=== PATIENT | male | born 1990 | race Caucasian/White ===

== ENCOUNTER 2017-01-18 11:31 | Emergency (ER) | payer OTHER ==
[2017-01-18 11:55] VITALS: BP 158/89; PULSE 72; RESP 16; TEMP 96.8
--- NOTE | 2017-01-18 12:23 | ED ---
ENT HPI - General Chief complaint: Dental/Oral Stated complaint: Oral Pain Time Seen by Provider: 01/18/17 12:03 Source: patient, RN notes reviewed Mode of arrival: ambulatory Limitations: no limitations - History of Present Illness Initial comments: 26-year-old male present emergency department with chief complaint of dental pain. He said that the last 2 weeks. Patient states that he believes his wisdom tooth cracked out. Patient states it's in his right lower region. He states he pain is getting worse. Patient denies fever, chills. He does admit to some intermittent headaches. Denies any sore throat or difficulty swallow. - Related Data Previous Rx's Medication Instructions Recorded Acetaminophen-Codeine 300-30mg 1 tab PO Q4H PRN #20 tablet 01/18/17 [Tylenol #3] Penicillin V Potassium [Pen Vee K] 500 mg PO QID #40 tab 01/18/17 Allergies Allergy/AdvReac Type Severity Reaction Status Date / Time No Known Allergies Allergy Verified 01/18/17 12:00 Review of Systems ROS Statement: Those systems with pertinent positive or pertinent negative responses have been documented in the HPI. ROS Other: All systems not noted in ROS Statement are negative. Past Medical History Past Medical History: No Reported History History of Any Multi-Drug Resistant Organisms: None Reported Past Surgical History: Orthopedic Surgery Additional Past Surgical History / Comment(s): knee Past Psychological History: No Psychological Hx Reported Smoking Status: Current every day smoker Past Alcohol Use History: Occasional Past Drug Use History: None Reported General Exam Limitations: no limitations General appearance: alert, in no apparent distress Head exam: Present: atraumatic, normocephalic, normal inspection Eye exam: Present: normal appearance, PERRL, EOMI. Absent: scleral icterus, conjunctival injection, periorbital swelling ENT exam: Present: mucous membranes moist, TM's normal bilaterally, normal external ear exam. Absent: normal exam, normal oropharynx (Dental fracture #32 no abscesses noted) Neck exam: Present: normal inspection, full ROM. Absent: tenderness, meningismus, lymphadenopathy Respiratory exam: Present: normal lung sounds bilaterally. Absent: respiratory distress, wheezes, rales, rhonchi, stridor Cardiovascular Exam: Present: regular rate, normal rhythm, normal heart sounds. Absent: systolic murmur, diastolic murmur, rubs, gallop, clicks Skin exam: Present: warm, dry, intact, normal color. Absent: rash Course Vital Signs 01/18/17 11:52 Temperature 96.8 F L Pulse Rate 72 Respiratory 16 Rate Blood Pressure 158/89 O2 Sat by Pulse 98 Oximetry Medical Decision Making - Medical Decision Making 26-year-old male presented for dental pain. Patient was placed on antibiotics, pain medication at this time. Patient was given dental clinic information follow-up return parameters were discussed. Disposition Clinical Impression: Fracture of tooth, Toothache Disposition: HOME SELF-CARE Condition: Stable Instructions: Toothache (ED) Additional Instructions: Please follow up with the [facility] dental clinic. [facility] [address]. Phone number for new patients or [phone] for existing patients. Please return to the Emergency Department if symptoms worsen or any other concerns. Prescriptions: Acetaminophen-Codeine 300-30mg [Tylenol #3] 1 tab PO Q4H PRN #20 tablet PRN Reason: pain Penicillin V Potassium [Pen Vee K] 500 mg PO QID #40 tab Referrals: None,Stated [Primary Care Provider] - 1-2 days Time of Disposition: 12:23
== END 2017-01-18 12:40 | disposition home or self-care (01) ==
LOC: EC 11:31
DX: S02.5XXA Fracture of tooth (traumatic), initial encounter for closed fracture (principal); F17.200 Nicotine dependence, unspecified, uncomplicated; X58.XXXA Exposure to other specified factors, initial encounter
CPT/HCPCS: 99282

== ENCOUNTER 2018-07-19 17:34 | Emergency (ER) | payer OTHER ==
[2018-07-19 17:44] VITALS: BP 118/75; PULSE 69; RESP 18; TEMP 97.6
[2018-07-19] MEDS ORDERED: BUPIVACAINE (PF) 0.5% 30 ML VIAL SQ STA (17:58)
[2018-07-19] MEDS ORDERED: BUPIVACAINE (PF) 0.75% 10 ML VIAL SQ STA (18:16)
[2018-07-19] MEDS ORDERED: ACET/COD 300 MG/30 MG STARTER PACK 6 TAB BTL PO STA (18:24)
--- NOTE | 2018-07-19 18:28 | ED ---
ENT HPI - General Chief complaint: Dental/Oral Stated complaint: dental pain Time Seen by Provider: 07/19/18 17:55 Source: patient, RN notes reviewed, old records reviewed Mode of arrival: ambulatory - History of Present Illness Initial comments: Patient is a 27-year-old male presenting to the emergency department due to bleeding the left lower dental pain. Patient reports symptoms started personally 2 days ago. He's had a history of a broken tooth. Patient reports that he had an abscess before. Was treated with antibiotics. Has not followed up with a dentist. Patient states that he has no difficulty breathing, denies trismus, or foul taste or odor mouth. He denies any drainage from the gum or tooth at this time.Patient denies any recent fever, chills, shortness of breath , chest pain, back pain, abdominal pain, nausea vomiting, numbness or tingling, dysuria or hematuria, constipation or diarrhea, headaches or visual changes, or any other current symptoms - Related Data Previous Rx's Medication Instructions Recorded Acetaminophen-Codeine 300-30mg 1 tab PO Q4H PRN #20 tablet 01/18/17 [Tylenol #3] Penicillin V Potassium [Pen Vee K] 500 mg PO QID #40 tab 01/18/17 Clindamycin [Cleocin] 450 mg PO TID 7 Days capsule 07/19/18 Ibuprofen [Motrin] 600 mg PO Q6HR PRN #20 tab 07/19/18 L.acidoph,Paracasei, B.lactis 1 each PO DAILY #30 capsule 07/19/18 [Probiotic] Allergies Allergy/AdvReac Type Severity Reaction Status Date / Time No Known Allergies Allergy Verified 07/19/18 17:44 Review of Systems ROS Statement: Those systems with pertinent positive or pertinent negative responses have been documented in the HPI. ROS Other: All systems not noted in ROS Statement are negative. Past Medical History Past Medical History: No Reported History History of Any Multi-Drug Resistant Organisms: None Reported Past Surgical History: Orthopedic Surgery Additional Past Surgical History / Comment(s): knee Past Psychological History: No Psychological Hx Reported Smoking Status: Current every day smoker Past Alcohol Use History: Occasional Past Drug Use History: None Reported General Exam - General Exam Comments Initial Comments: 27-year-old male. Alert and oriented 3. Patient appears in no acute distress. General appearance: alert, in no apparent distress Head exam: Present: atraumatic, normocephalic, normal inspection Eye exam: Present: normal appearance, PERRL, EOMI. Absent: scleral icterus, conjunctival injection, periorbital swelling ENT exam: Present: normal exam, mucous membranes moist (Patient has surrounding erythema over tooth #20 and 19.), other (Patient has poor dentition.) Neck exam: Present: normal inspection. Absent: tenderness, meningismus, lymphadenopathy Respiratory exam: Present: normal lung sounds bilaterally. Absent: respiratory distress, wheezes, rales, rhonchi, stridor Cardiovascular Exam: Present: regular rate, normal rhythm, normal heart sounds. Absent: systolic murmur, diastolic murmur, rubs, gallop, clicks GI/Abdominal exam: Present: soft, normal bowel sounds. Absent: distended, tenderness, guarding, rebound, rigid Neurological exam: Present: alert, oriented X3, CN II-XII intact Psychiatric exam: Present: normal affect, normal mood Skin exam: Present: warm, dry, intact, normal color. Absent: rash Course Vital Signs 07/19/18 17:41 Temperature 97.6 F Pulse Rate 69 Respiratory 18 Rate Blood Pressure 118/75 O2 Sat by Pulse 98 Oximetry Medical Decision Making - Medical Decision Making Patient's 27-year-old male presents today with dental abscess over tooth #19 and 20. There is no drainable abscess noted at this time. He has no trismus. Fevers or chills. This time Patient was started on clindamycin, we'll also write the Patient for probiotic. Given a starter pack for pain medication. Motrin. Discussed following up with dental clinic. All questions answered and return parameters were discussed. Disposition Clinical Impression: Dental abscess Disposition: HOME SELF-CARE Condition: Good Instructions: Dental Abscess (ED), Toothache (ED) Additional Instructions: [facility] [place] [address] [place] [address] [phone] (existing clients only) For new clients: [phone] 1st consult: $50 (includes Xrays) Usually 30% less then private dentist for visits after. [employer] Have to pay $50 for Xrays anmd rest is covered. [phone] Prescriptions: Clindamycin [Cleocin] 450 mg PO TID 7 Days capsule Ibuprofen [Motrin] 600 mg PO Q6HR PRN #20 tab PRN Reason: Pain L.acidoph,Paracasei, B.lactis [Probiotic] 1 each PO DAILY #30 capsule Is patient prescribed a controlled substance at d/c from ED?: No Referrals: None,Stated [Primary Care Provider] - 1-2 days Time of Disposition: 18:24
--- NOTE | 2018-07-20 07:12 | CDI ---
Documentation Clarification OP Dear BARBARA Matos: Please do addendum to ED report for HPI , Physical exam and MDM. Thank you, Jocelyn Trevino Application Packaging Specialist If you have any question, Please contact software quality manager at [phone] [facility]
== END 2018-07-19 18:41 | disposition home or self-care (01) ==
LOC: EC 17:34
DX: K04.7 Periapical abscess without sinus (principal); F17.200 Nicotine dependence, unspecified, uncomplicated; Z53.8 Procedure and treatment not carried out for other reasons
CPT/HCPCS: 99283

== ENCOUNTER 2019-06-29 15:26 | Emergency (ER) | payer OTHER ==
[2019-06-29 15:32] VITALS: RESP 16
[2019-06-29 16:48] LABS: Basophils # (A) 0.1 k/uL (0-0.2); Basophils % (A) 0 %; Eosinophils # (A) 0.1 k/uL (0-0.7); Eosinophils % (A) 1 %; HCT 48.8 % (39.0-53.0); HGB 16.5 gm/dL (13.0-17.5); Lymphocytes # (A) 2.5 k/uL (1.0-4.8); Lymphocytes % (A) 14 %; MCH 29.2 pg (25.0-35.0); MCHC 33.8 g/dL (31.0-37.0); MCV 86.5 fL (80.0-100.0); Monocytes # (A) 0.7 k/uL (0-1.0); Monocytes % (A) 4 %; Neutrophils # (A) 14.2 k/uL (1.3-7.7); Neutrophils % (A) 80 %; Platelet Count 281 k/uL (150-450); RBC 5.65 m/uL (4.30-5.90); RDW 13.2 % (11.5-15.5); WBC 17.7 k/uL (3.8-10.6)
[2019-06-29 17:20] LABS: ALT 46 U/L (21-72); AST 36 U/L (17-59); African American GFR (CKD) >90 (>60 ml/min/1.73 sqM); Albumin 5.2 g/dL (3.5-5.0); Alkaline Phosphatase 41 U/L (38-126); Anion Gap 10 mmol/L; Blood Urea Nitrogen 20 mg/dL (9-20); Calcium 10.4 mg/dL (8.4-10.2); Carbon Dioxide 26 mmol/L (22-30); Chloride 105 mmol/L (98-107); Glucose 115 mg/dL (74-99); Potassium 4.6 mmol/L (3.5-5.1); Sodium 141 mmol/L (137-145); Total Bilirubin 0.4 mg/dL (0.2-1.3); Total Protein 8.8 g/dL (6.3-8.2)
--- NOTE | 2019-06-29 17:29 | XR ---
EXAMINATION: XR chest 2V DATE AND TIME: 06/29/2019 5:03 PM CLINICAL INDICATION: PHH; Cough/pain TECHNIQUE: Departmental protocol COMPARISON: There are no comparison imaging studies. FINDINGS: The lungs are clear. The pleural spaces are negative. The cardiac silhouette is borderline enlarged, which may be projectional. The remainder of the medias tinal silhouette is normal. The lateral view shows manubriosternal junction one shaft-width malalignment, consistent with fractur e, age indeterminate. No acute soft tissue findings. IMPRESSION: 1. No acute pulmonary pleural process. 2. However, one shaft-width manubriosternal displacement noted on the lateral view. 3. Cardiac silhouette appears borderline enlarged on the frontal view.
[2019-06-29] MEDS ORDERED: AMOXIC-POT CLAV 875-125MG 1 EACH TAB PO STA (19:09)
--- NOTE | 2019-06-29 19:13 | ED ---
General Adult HPI - General Chief complaint: Dizziness Stated complaint: near syncope Source: patient, EMS Mode of arrival: EMS Limitations: no limitations - History of Present Illness Initial comments: The patient is a 28-year-old male with no past medical history who presents to the emergency room with reported presyncopal episode. He states that he went with his girlfriend. Doctor's visit. He was waiting in the car and he had the sensation that he is can pass out. States that when he got up to ambulate sensation got worse. He got into the doctor's office and was extremely diaphoretic and pale. The patient was sat down. Did not lose consciousness. He was evaluated by the physician on staff at the doctor's office who recommended to go to the emergency room for evaluation. He was transferred by EMS. States that time he arrived he felt better. He denies any chest pain or shortness breath prior to episode. No history of cardiac disease. Denies family history of sudden cardiac . Denies any headaches or visual changes. No unilateral symptoms. Patient states he's been eating and drinking without difficulty. No report of any changes in his bowel or bladder habits. No recent infections. Does report that he has a painful tooth which has been bothering him for the past month. Hasn't been on any antibiotics. No prescription drug use. Denies use of any illicit drugs. No history of DVT or PE. No lower extremity swelling. No calf pain. Denies ataxia or vertiginous symptoms. There are no alleviating, precipitating or modifying factors - Related Data Home Medications Medication Instructions Recorded Confirmed No Known Home Medications 06/29/19 06/29/19 Previous Rx's Medication Instructions Recorded Amoxicillin/Potassium Clav 1 tab PO BID #14 tab 06/29/19 [Augmentin 875-125 Tablet] Allergies Allergy/AdvReac Type Severity Reaction Status Date / Time No Known Allergies Allergy Verified 06/29/19 16:07 Review of Systems ROS Statement: Those systems with pertinent positive or pertinent negative responses have been documented in the HPI. ROS Other: All systems not noted in ROS Statement are negative. Past Medical History Past Medical History: No Reported History History of Any Multi-Drug Resistant Organisms: None Reported Past Surgical History: Orthopedic Surgery Additional Past Surgical History / Comment(s): knee Past Psychological History: No Psychological Hx Reported Smoking Status: Current every day smoker Past Alcohol Use History: Rare Past Drug Use History: Marijuana General Exam Limitations: no limitations Course Vital Signs 06/29/19 06/29/19 06/29/19 15:27 16:40 19:28 Temperature 98.3 F 98.7 F Pulse Rate 65 56 L Pulse Rate [ 70 Right Sitting Pulse Oximetery ] Pulse Rate [ 71 Right Standing Pulse Oximetery ] Pulse Rate [ 65 Right Supine Pulse Oximetery ] Respiratory 16 16 16 Rate Blood Pressure 131/83 131/83 Blood Pressure 129/79 [Right Arm Sitting] Blood Pressure 128/82 [Right Arm Standing] Blood Pressure 117/67 [Right Arm Supine] O2 Sat by Pulse 98 97 Oximetry EKG Findings - EKG Comments: EKG Findings:: EKG demonstrates normal sinus rhythm with ventricular rate of 63. RI interval 142. QRS 80. QTC of 405. Inverted T-wave in lead 3. No acute ST segment elevations or depressions. No signs of Pvydc-Itjufagtm-Xqohd or Brugada syndrome Medical Decision Making - Medical Decision Making Upon arrival the patient is placed in room 4. A thorough history and physical exam was performed. Peripheral IV was established. The patient was given a liter bolus of normal saline. Laboratory studies were conducted. A 12-lead EKG was performed as well. Her sister demonstrated white blood cell count of 17.7. Orthostatics were performed prior to fluid initiation and were negative. The patient was sent over for a chest x-ray which demonstrated no acute pulmonary process. One shaft width manubriosternal displacements consistent with previous fracture. No trauma today. I discussed these results the patient. I did attempt to identify a different source of infection. The patient denies history of IV drug use. No ear pain or sore throat. Has the only possible source for his infection is is to the did recommend treatment with antibiotics. Patient did agree. He was given a dose of Augmentin in the emergency department. Patient feels asymptomatic at this time. He will be discharged home and needs to follow up with his primary care physician. He needs to have repeat lab kadeem dies done after finishing the antibiotic. He also needs to have Holter monitoring and echo of his heart because of this presyncopal episode. Patient understood this. He has any new or worsening symptoms he should return to the emergency room. The patient was discharged home stable condition - Lab Data Result diagrams: 06/29/19 16:32 06/29/19 16:32 Lab Results 06/29/19 06/29/19 Range/Units 16:32 16:32 WBC 17.7 H (3.8-10.6) k/uL RBC 5.65 (4.30-5.90) m/uL Hgb 16.5 (13.0-17.5) gm/dL Hct 48.8 (39.0-53.0) % MCV 86.5 (80.0-100.0) fL MCH 29.2 (25.0-35.0) pg MCHC 33.8 (31.0-37.0) g/dL RDW 13.2 (11.5-15.5) % Plt Count 281 (150-450) k/uL Neutrophils % 80 % Lymphocytes % 14 % Monocytes % 4 % Eosinophils % 1 % Basophils % 0 % Neutrophils # 14.2 H (1.3-7.7) k/uL Lymphocytes # 2.5 (1.0-4.8) k/uL Monocytes # 0.7 (0-1.0) k/uL Eosinophils # 0.1 (0-0.7) k/uL Basophils # 0.1 (0-0.2) k/uL Sodium 141 (137-145) mmol/L Potassium 4.6 (3.5-5.1) mmol/L Chloride 105 (98-107) mmol/L Carbon Dioxide 26 (22-30) mmol/L Anion Gap 10 mmol/L BUN 20 (9-20) mg/dL Creatinine 0.99 (0.66-1.25) mg/dL Est GFR (CKD-EPI)AfAm >90 (>60 ml/min/1.73 sqM) Est GFR (CKD-EPI)NonAf >90 (>60 ml/min/1.73 sqM) Glucose 115 H (74-99) mg/dL Calcium 10.4 H (8.4-10.2) mg/dL Total Bilirubin 0.4 (0.2-1.3) mg/dL AST 36 (17-59) U/L ALT 46 (21-72) U/L Alkaline Phosphatase 41 (38-126) U/L Total Protein 8.8 H (6.3-8.2) g/dL Albumin 5.2 H (3.5-5.0) g/dL TSH 1.830 (0.465-4.680) mIU/L Disposition Clinical Impression: Pre-syncope, Leukocytosis, Infected dental caries Disposition: HOME SELF-CARE Condition: Stable Instructions (If sedation given, give patient instructions): Near Syncope (ED) Additional Instructions: Please follow up with Dr. Steen next week in office. You need to have repeat CBC drawn to re-evaluated your WBC. See your dentist to have her tooth extracted. Return to the emergency room for any new or worsening symptoms Prescriptions: Amoxicillin/Potassium Clav [Augmentin 875-125 Tablet] 1 tab PO BID #14 tab Is patient prescribed a controlled substance at d/c from ED?: No Referrals: Zheng Steen MD [Primary Care Provider] - 1-2 days Time of Disposition: 19:13
[2019-06-29 19:29] VITALS: BP 131/83; PULSE 56; TEMP 98.7
== END 2019-06-29 19:28 | disposition home or self-care (01) ==
LOC: EC 15:26
DX: D72.829 Elevated white blood cell count, unspecified (principal); K02.9 Dental caries, unspecified; R55 Syncope and collapse; F17.200 Nicotine dependence, unspecified, uncomplicated
CPT/HCPCS: 36415; 71046; 80053; 84443; 85025; 93005; 99285

== ENCOUNTER 2020-11-15 15:05 | Emergency (ER) | payer OTHER ==
[2020-11-15 15:25] VITALS: BP 128/80; PULSE 72; TEMP 98.4
--- NOTE | 2020-11-15 15:27 | ED ---
General Adult HPI - General Source: patient Mode of arrival: ambulatory Limitations: no limitations <Narcisa Zuñiga - Last Filed: 11/15/20 15:27> - General Source: RN notes reviewed <Edwin Velasco - Last Filed: 11/15/20 16:39> - General Chief complaint: Recheck/Abnormal Lab/Rx Stated complaint: covid exposure Time Seen by Provider: 11/15/20 15:27 - History of Present Illness Initial comments: Patient is a 29-year-old male that presents to emergency department complaining of a cough for several days status post exposure to a Covid-positive family member. He notes that he really doesn't have any symptoms she is on comes the emergency room to get tested. Patient denied any chest pain shortness of breath headache nausea vomiting diarrhea constipation fever fatigue chills loss and sense of taste or smell. (Edwin Velasco) - Related Data Home Medications Medication Instructions Recorded Confirmed No Known Home Medications 06/29/19 06/29/19 Previous Rx's Medication Instructions Recorded Amoxicillin/Potassium Clav 1 tab PO BID #14 tab 06/29/19 [Augmentin 875-125 Tablet] Allergies Allergy/AdvReac Type Severity Reaction Status Date / Time No Known Allergies Allergy Verified 11/15/20 15:23 Review of Systems ROS Other: All systems not noted in ROS Statement are negative. <Narcisa Zuñiga P - Last Filed: 11/15/20 15:27> ROS Other: All systems not noted in ROS Statement are negative. <Edwin Velasco - Last Filed: 11/15/20 16:39> ROS Statement: Those systems with pertinent positive or pertinent negative responses have been documented in the HPI. Past Medical History Past Medical History: No Reported History History of Any Multi-Drug Resistant Organisms: None Reported Past Surgical History: Orthopedic Surgery Additional Past Surgical History / Comment(s): knee Past Psychological History: No Psychological Hx Reported Smoking Status: Current every day smoker Past Alcohol Use History: Rare Past Drug Use History: Marijuana <Narcisa Zuñiga P - Last Filed: 11/15/20 15:27> General Exam Limitations: no limitations <Narcisa Zuñiga P - Last Filed: 11/15/20 15:27> General appearance: alert, in no apparent distress, obese Head exam: Present: atraumatic, normocephalic, normal inspection Eye exam: Present: normal appearance, PERRL, EOMI. Absent: scleral icterus, conjunctival injection, periorbital swelling ENT exam: Present: normal exam, mucous membranes moist Neck exam: Present: normal inspection. Absent: tenderness, meningismus, lymphadenopathy Respiratory exam: Present: normal lung sounds bilaterally. Absent: respiratory distress, wheezes, rales, rhonchi, stridor Cardiovascular Exam: Present: regular rate, normal rhythm, normal heart sounds. Absent: systolic murmur, diastolic murmur, rubs, gallop, clicks GI/Abdominal exam: Present: soft, normal bowel sounds. Absent: distended, tenderness, guarding, rebound, rigid Extremities exam: Present: normal inspection, full ROM, normal capillary refill. Absent: tenderness, pedal edema, joint swelling, calf tenderness Neurological exam: Present: alert, oriented X3, CN II-XII intact Psychiatric exam: Present: normal affect, normal mood Skin exam: Present: warm, dry, intact, normal color. Absent: rash <Edwin Velasco - Last Filed: 11/15/20 16:39> Course Vital Signs 11/15/20 11/15/20 15:23 15:33 Temperature 98.4 F Pulse Rate 72 Respiratory 18 16 Rate Blood Pressure 128/80 O2 Sat by Pulse 96 Oximetry Medical Decision Making <Edwin Velasco - Last Filed: 11/15/20 16:39> - Medical Decision Making 29-year-old male with a mild cough for several days status post exposure to Covid-positive family member. Covid test ordered. Vital signs stable. Patient informed that management for either Covid positive or negative is the same due to the similarity of viral upper respiratory tract infections. Case discussed with Dr. Zuñiga, decided patient to discharge home. (Edwin Velasco) Disposition <Narcisa Zuñiga - Last Filed: 11/15/20 15:27> Is patient prescribed a controlled substance at d/c from ED?: No Time of Disposition: 16:39 <Edwin Velasco - Last Filed: 11/15/20 16:39> Clinical Impression: Upper respiratory tract infection Disposition: HOME SELF-CARE Condition: Stable Instructions (If sedation given, give patient instructions): Pharyngitis (ED), Upper Respiratory Infection (ED) Additional Instructions: Please return to the Emergency Department if symptoms worsen or any other concerns. Quarantine for 10-14 days due to being exposed to a Covid-positive family member. Take [id number] anti-inflammatories for fever and general muscle aches and pains. Follow-up with primary care as soon as possible. Increase oral fluid intake. Referrals: Zheng Steen MD [Primary Care Provider] - 1-2 days
[2020-11-15 15:34] VITALS: RESP 16
== END 2020-11-15 16:46 | disposition home or self-care (01) ==
LOC: EC 15:05
DX: J06.9 Acute upper respiratory infection, unspecified (principal); Z20.822 Contact with and (suspected) exposure to COVID-19; F17.200 Nicotine dependence, unspecified, uncomplicated
CPT/HCPCS: 87635

== ENCOUNTER 2021-09-23 17:55 | Inpatient (IN) | payer OTHER ==
[2021-09-23 18:19] LABS: Glucose,Whole Blood 488 mg/dL (75-99)
[2021-09-23] MEDS ORDERED: SODIUM CHLORIDE 0.9% 1,000 ML IV STA ×2 (18:30)
[2021-09-23] MEDS ORDERED: HYDROmorphone 0.5 MG/0.5 ML SYRINGE IVP STA (18:30)
--- NOTE | 2021-09-23 18:33 | ED ---
General Adult HPI - General Chief complaint: Abdominal Pain Stated complaint: Covid exposure, abd pain Time Seen by Provider: 09/23/21 18:22 Source: patient, RN notes reviewed Mode of arrival: ambulatory Limitations: no limitations - History of Present Illness Initial comments: 30-year-old male presents to the emergency room for abdominal pain. Patient has had abdominal pain for 3 days now. Patient states it is across his lower abdomen. Patient reports nausea as well. Patient states his girlfriend just tested positive for COVID-19. Patient also reports his sugar has been running high. He states that he is supposed to take several oral medications for this but hasn't been doing it. He hasn't been checking his blood sugar at home either.Patient has no other complaints at this time including shortness of breath, chest pain, nausea or vomiting, headache, or visual changes. - Related Data Home Medications Medication Instructions Recorded Confirmed No Known Home Medications 06/29/19 09/23/21 Allergies Allergy/AdvReac Type Severity Reaction Status Date / Time No Known Allergies Allergy Verified 09/23/21 19:07 Review of Systems ROS Statement: Those systems with pertinent positive or pertinent negative responses have been documented in the HPI. ROS Other: All systems not noted in ROS Statement are negative. Past Medical History Past Medical History: No Reported History, Diabetes Mellitus History of Any Multi-Drug Resistant Organisms: None Reported Past Surgical History: Orthopedic Surgery Additional Past Surgical History / Comment(s): knee Past Psychological History: No Psychological Hx Reported Smoking Status: Current every day smoker Past Alcohol Use History: Rare Past Drug Use History: Marijuana General Exam Limitations: no limitations General appearance: alert, in no apparent distress Head exam: Present: atraumatic Eye exam: Present: normal appearance, PERRL, EOMI. Absent: scleral icterus, conjunctival injection ENT exam: Present: normal exam, mucous membranes moist Neck exam: Present: normal inspection, full ROM. Absent: tenderness Respiratory exam: Present: normal lung sounds bilaterally. Absent: respiratory distress, wheezes Cardiovascular Exam: Present: regular rate, normal rhythm, normal heart sounds GI/Abdominal exam: Present: soft, normal bowel sounds. Absent: distended, tenderness Neurological exam: Present: alert Course Vital Signs 09/23/21 18:10 Temperature 97.7 F Pulse Rate 114 H Respiratory 20 Rate Blood Pressure 126/75 O2 Sat by Pulse 96 Oximetry Medical Decision Making - Medical Decision Making Vitals are stable. Patient is tachycardic at 114. CBC does show leukocytosis. CMP reveals hyperglycemia and an anion gap of 26. 4+ ketones in the urine, positive acetone. Consistent with DKA. Pseudohyponatremia noted. Patient given 2 L of fluid, started on a insulin drip. Patient is covert positive as well. Patient does qualify for monoclonal antibodies given he is not vaccinated. Patient will be admitted to Dr. steen - Lab Data Result diagrams: 09/23/21 18:47 09/23/21 18:47 Lab Results 09/23/21 09/23/21 09/23/21 Range/Units 18:14 18:18 18:47 WBC 22.9 H (3.8-10.6) k/uL RBC 5.09 (4.30-5.90) m/uL Hgb 15.0 (13.0-17.5) gm/dL Hct 43.2 (39.0-53.0) % MCV 84.9 (80.0-100.0) fL MCH 29.6 (25.0-35.0) pg MCHC 34.8 (31.0-37.0) g/dL RDW 14.1 (11.5-15.5) % Plt Count 242 (150-450) k/uL MPV 9.2 Neutrophils % 82 % Lymphocytes % 12 % Monocytes % 4 % Eosinophils % 0 % Basophils % 0 % Neutrophils # 18.8 H (1.3-7.7) k/uL Lymphocytes # 2.8 (1.0-4.8) k/uL Monocytes # 0.9 (0-1.0) k/uL Eosinophils # 0.1 (0-0.7) k/uL Basophils # 0.1 (0-0.2) k/uL Sodium (137-145) mmol/L Potassium (3.5-5.1) mmol/L Chloride (98-107) mmol/L Carbon Dioxide (22-30) mmol/L Anion Gap mmol/L BUN (9-20) mg/dL Creatinine (0.66-1.25) mg/dL Est GFR (CKD-EPI)AfAm (>60 ml/min/1.73 sqM) Est GFR (CKD-EPI)NonAf (>60 ml/min/1.73 sqM) Glucose (74-99) mg/dL POC Glucose (mg/dL) 488 H (75-99) mg/dL POC Glu Pre K Teacher ID Brett Cohen Plasma Lactic Acid Cisco (0.7-2.0) mmol/L Calcium (8.4-10.2) mg/dL Total Bilirubin (0.2-1.3) mg/dL AST (17-59) U/L ALT (4-49) U/L Alkaline Phosphatase (38-126) U/L Total Protein (6.3-8.2) g/dL Albumin (3.5-5.0) g/dL Amylase (30-110) U/L Lipase (23-300) U/L Urine Color Urine Appearance (Clear) Urine pH (5.0-8.0) Ur Specific [place] (1.001-1.035) Urine Protein (Negative) Urine Glucose (UA) (Negative) Urine Ketones (Negative) Urine Blood (Negative) Urine Nitrite (Negative) Urine Bilirubin (Negative) Urine Urobilinogen (<2.0) mg/dL Ur Leukocyte Esterase (Negative) Urine RBC (0-5) /hpf Urine WBC (0-5) /hpf Urine Mucus (None) /hpf Acetone, Qual (Negative) Coronavirus (PCR) Detected A (Not Detectd) 09/23/21 09/23/21 09/23/21 Range/Units 18:47 18:47 18:47 WBC (3.8-10.6) k/uL RBC (4.30-5.90) m/uL Hgb (13.0-17.5) gm/dL Hct (39.0-53.0) % MCV (80.0-100.0) fL MCH (25.0-35.0) pg MCHC (31.0-37.0) g/dL RDW (11.5-15.5) % Plt Count (150-450) k/uL MPV Neutrophils % % Lymphocytes % % Monocytes % % Eosinophils % % Basophils % % Neutrophils # (1.3-7.7) k/uL Lymphocytes # (1.0-4.8) k/uL Monocytes # (0-1.0) k/uL Eosinophils # (0-0.7) k/uL Basophils # (0-0.2) k/uL Sodium 126 L (137-145) mmol/L Potassium 5.0 (3.5-5.1) mmol/L Chloride 92 L (98-107) mmol/L Carbon Dioxide 8 L* (22-30) mmol/L Anion Gap 26 mmol/L BUN 12 (9-20) mg/dL Creatinine 0.76 (0.66-1.25) mg/dL Est GFR (CKD-EPI)AfAm >90 (>60 ml/min/1.73 sqM) Est GFR (CKD-EPI)NonAf >90 (>60 ml/min/1.73 sqM) Glucose 494 H (74-99) mg/dL POC Glucose (mg/dL) (75-99) mg/dL POC Glu Pre K Teacher ID Plasma Lactic Acid [place] 1.4 (0.7-2.0) mmol/L Calcium 9.3 (8.4-10.2) mg/dL Total Bilirubin 0.9 (0.2-1.3) mg/dL AST 20 (17-59) U/L ALT 36 (4-49) U/L Alkaline Phosphatase 85 (38-126) U/L Total Protein 8.0 (6.3-8.2) g/dL Albumin 4.2 (3.5-5.0) g/dL Amylase 54 (30-110) U/L Lipase 151 (23-300) U/L Urine Color Light Yellow Urine Appearance Clear (Clear) Urine pH 5.5 (5.0-8.0) Ur Specific [place] 1.035 (1.001-1.035) Urine Protein 2+ H (Negative) Urine Glucose (UA) 4+ H (Negative) Urine Ketones 4+ H (Negative) Urine Blood Negative (Negative) Urine Nitrite Negative (Negative) Urine Bilirubin Negative (Negative) Urine Urobilinogen <2.0 (<2.0) mg/dL Ur Leukocyte Esterase Negative (Negative) Urine RBC <1 (0-5) /hpf Urine WBC <1 (0-5) /hpf Urine Mucus Rare H (None) /hpf Acetone, Qual Positive (Negative) Coronavirus (PCR) (Not Detectd) Disposition Clinical Impression: DKA (diabetic ketoacidosis), Abdominal pain, COVID, Leukocytosis Disposition: ADMITTED IP TO THIS HOSP Condition: Serious Is patient prescribed a controlled substance at d/c from ED?: No Referrals: Zheng Steen MD [Primary Care Provider] - 1-2 days Time of Disposition: 20:13
[2021-09-23 19:07] LABS: Basophils # (A) 0.1 k/uL (0-0.2); Basophils % (A) 0 %; Eosinophils # (A) 0.1 k/uL (0-0.7); Eosinophils % (A) 0 %; HCT 43.2 % (39.0-53.0); Lymphocytes # (A) 2.8 k/uL (1.0-4.8); Lymphocytes % (A) 12 %; MCH 29.6 pg (25.0-35.0); MCHC 34.8 g/dL (31.0-37.0); MCV 84.9 fL (80.0-100.0); Mean Platelet Volume 9.2; Monocytes # (A) 0.9 k/uL (0-1.0); Monocytes % (A) 4 %; Neutrophils # (A) 18.8 k/uL (1.3-7.7); Neutrophils % (A) 82 %; Platelet Count 242 k/uL (150-450); RBC 5.09 m/uL (4.30-5.90); RDW 14.1 % (11.5-15.5); WBC 22.9 k/uL (3.8-10.6)
[2021-09-23 19:09] LABS: Appearance,Urine Clear (Clear); Bilirubin,Urine Negative (Negative); Blood,Urine Negative (Negative); Color,Urine Light Yellow; Glucose,Urine (UA) 4+ (Negative); Leukocyte Esterase,Urine Negative (Negative); Mucus,Urine Rare /hpf; Nitrite,Urine Negative (Negative); PH, Urine 5.5 (5.0-8.0); Protein,Urine 2+ (Negative); RBC,Urine <1 /hpf (0-5); Specific Gravity,Urine 1.035 (1.001-1.035); Urobilinogen,Urine <2.0 mg/dL (<2.0); WBC,Urine <1 /hpf (0-5)
[2021-09-23 19:19] LABS: ALT 36 U/L (4-49); AST 20 U/L (17-59); African American GFR (CKD) >90 (>60 ml/min/1.73 sqM); Albumin 4.2 g/dL (3.5-5.0); Alkaline Phosphatase 85 U/L (38-126); Amylase 54 U/L (30-110); Anion Gap 26 mmol/L; Blood Urea Nitrogen 12 mg/dL (9-20); Calcium 9.3 mg/dL (8.4-10.2); Chloride 92 mmol/L (98-107); Glucose 494 mg/dL (74-99); Lipase 151 U/L (23-300); Non-African American GFR(CKD) >90 (>60 ml/min/1.73 sqM); Sodium 126 mmol/L (137-145); Total Bilirubin 0.9 mg/dL (0.2-1.3)
[2021-09-23 19:31] LABS: Ketones,Urine 4+ (Negative)
[2021-09-23 19:37] LABS: Carbon Dioxide 8 mmol/L (22-30)
--- NOTE | 2021-09-23 19:45 | CT ---
EXAMINATION TYPE: CT abdomen pelvis w con DATE OF EXAM: 09/23/2021 COMPARISON: None HISTORY: Abdominal pain CT DLP: 1328.8 mGycm Automated exposure control for dose reduction was used. CONTRAST: Performed with IV Contrast, patient injected with 100 mL of Isovue 300. The lung bases are clear. There is no pleural effusion. Heart size is normal. There is no pericardial effusion. Liver spleen and stomach appear intact. The gallbladder appears intact. The bile ducts are not dilated. There is some fat stranding around the pancreatic head and right anterior pararenal space. There is s ome mild retroperitoneal fluid on the right side. Bladder distends smoothly. There is no inguinal [place]. There is no free fluid in the pelvis. There is normal contrast opacification of the kidneys. The re is no hydronephrosis. Delayed images show normal renal excretion. Ureters are not dilated. The lumbar vertebrae have normal alignment. Posterior elements are intact. There is no compression fr acture. Appendix appears normal. There is no ascites. There is no sign of free air. There is no evidence of b owel obstruction. IMPRESSION: Retroperitoneal inflammatory changes on the right side and around the pancreas consistent with acute pancreatitis. Fluid extends inferiorly to the sacrum.
[2021-09-23] MEDS ORDERED: ONDANSETRON 4 MG/2 ML VIAL IVP PRN (20:17)
[2021-09-23] MEDS ORDERED: BAMLANIVIMAB (EUA) 700 MG, ETESEVIMAB (EUA) 1,400 MG in SODIUM CHLORIDE 0.9% 100 ML IVPB ONE (20:30)
[2021-09-23] MEDS ORDERED: SODIUM CHLORIDE 0.9% 50 ML IVPB ONE (20:30)
[2021-09-23 21:12] LABS: Glucose,Whole Blood 364 mg/dL (75-99)
[2021-09-23] MEDS: INSULIN REGULAR 100 UNIT in SODIUM CHLORIDE 0.9% 100 ML IV SCH (22:05)
[2021-09-23 22:11] LABS: Glucose,Whole Blood 334 mg/dL (75-99)
[2021-09-23] MEDS: SODIUM CHLORIDE 0.9% 1,000 ML IV SCH (22:14)
[2021-09-23 23:13] LABS: Glucose,Whole Blood 284 mg/dL (75-99)
[2021-09-23] MEDS: D5-0.45% NACL WITH KCL 20MEQ/L 1,000 ML IV SCH (23:37)
[2021-09-24 00:15] LABS: Glucose,Whole Blood 259 mg/dL (75-99)
[2021-09-24] MEDS: MORPHINE SULFATE 4 MG/ML SYRINGE IVP PRN ×2 (00:36→06:43)
[2021-09-24 01:19] LABS: African American GFR (CKD) >90 (>60 ml/min/1.73 sqM); Anion Gap 15 mmol/L; Blood Urea Nitrogen 9 mg/dL (9-20); Carbon Dioxide 16 mmol/L (22-30); Chloride 101 mmol/L (98-107); Glucose 236 mg/dL (74-99); Non-African American GFR(CKD) >90 (>60 ml/min/1.73 sqM); Phosphorus 2.2 mg/dL (2.5-4.5); Potassium 4.4 mmol/L (3.5-5.1); Sodium 132 mmol/L (137-145)
[2021-09-24 01:29] LABS: Glucose,Whole Blood 225 mg/dL (75-99)
[2021-09-24] MEDS: INSULIN REGULAR 100 UNIT in SODIUM CHLORIDE 0.9% 100 ML IV SCH (02:17)
[2021-09-24 02:23] LABS: Glucose,Whole Blood 205 mg/dL (75-99)
[2021-09-24 03:36] LABS: Glucose,Whole Blood 187 mg/dL (75-99)
[2021-09-24 04:05] LABS: Glucose,Whole Blood 172 mg/dL (75-99)
[2021-09-24 05:07] LABS: Glucose,Whole Blood 129 mg/dL (75-99)
[2021-09-24 05:25] LABS: African American GFR (CKD) >90 (>60 ml/min/1.73 sqM); Anion Gap 10 mmol/L; Blood Urea Nitrogen 9 mg/dL (9-20); Carbon Dioxide 20 mmol/L (22-30); Chloride 101 mmol/L (98-107); Glucose 133 mg/dL (74-99); Non-African American GFR(CKD) >90 (>60 ml/min/1.73 sqM); Phosphorus 2.2 mg/dL (2.5-4.5); Potassium 4.2 mmol/L (3.5-5.1); Sodium 131 mmol/L (137-145)
[2021-09-24] MEDS: INSULIN ASPART (NovoLOG) 100 UNIT/ML VIAL SQ SCH ×4 (06:48→19:59)
[2021-09-24 09:23] LABS: Estimated Average Glucose UNC
[2021-09-24 09:49] LABS: Glucose,Whole Blood 102 mg/dL (75-99)
[2021-09-24 11:10] VITALS: BMI 33.4
[2021-09-24 11:42] LABS: Glucose,Whole Blood 325 mg/dL (75-99)
[2021-09-24] MEDS ORDERED: HYDROmorphone 0.5 MG/0.5 ML SYRINGE IVP PRN (14:27)
[2021-09-24 14:57] LABS: HCT 37.8 % (39.0-53.0); HGB 12.7 gm/dL (13.0-17.5); MCH 28.8 pg (25.0-35.0); MCHC 33.5 g/dL (31.0-37.0); MCV 85.9 fL (80.0-100.0); Platelet Count 223 k/uL (150-450); RDW 14.6 % (11.5-15.5); WBC 18.3 k/uL (3.8-10.6)
[2021-09-24] MEDS ORDERED: INSULIN DETEMIR (LEVEMIR) 100 UNIT/ML SYR SQ SCH (15:00)
[2021-09-24 15:08] LABS: African American GFR (CKD) >90 (>60 ml/min/1.73 sqM); Amylase 44 U/L (30-110); Anion Gap 8 mmol/L; Blood Urea Nitrogen 10 mg/dL (9-20); Calcium 8.2 mg/dL (8.4-10.2); Carbon Dioxide 22 mmol/L (22-30); Chloride 98 mmol/L (98-107); Glucose 369 mg/dL (74-99); Lipase 88 U/L (23-300); Non-African American GFR(CKD) >90 (>60 ml/min/1.73 sqM); Potassium 5.1 mmol/L (3.5-5.1); Sodium 128 mmol/L (137-145)
[2021-09-24 16:39] LABS: Glucose,Whole Blood 324 mg/dL (75-99)
[2021-09-24] MEDS: DEXTROSE 5%-0.2% NACL 1,000 ML IV SCH (17:17)
[2021-09-24] MEDS: D5-0.45% NACL WITH KCL 20MEQ/L 1,000 ML IV SCH ×3 (19:50→22:03)
[2021-09-24 19:58] LABS: Glucose,Whole Blood 326 mg/dL (75-99)
[2021-09-24] MEDS ORDERED: HYDROcodone/APAP 5-325MG 1 EACH TAB PO PRN (20:35)
[2021-09-24] MEDS: SODIUM CHLORIDE 0.9% 1,000 ML IV SCH ×2 (22:03→22:04)
[2021-09-25] MEDS: DEXTROSE 5%-0.2% NACL 1,000 ML IV SCH (01:59)
[2021-09-25 02:01] LABS: Glucose,Whole Blood 321 mg/dL (75-99)
[2021-09-25 06:02] LABS: Glucose,Whole Blood 319 mg/dL (75-99)
[2021-09-25] MEDS: INSULIN ASPART (NovoLOG) 100 UNIT/ML VIAL SQ SCH ×4 (06:35→20:30)
[2021-09-25] MEDS ORDERED: lisinopriL 10 MG TAB PO SCH (09:00)
[2021-09-25] MEDS ORDERED: SODIUM CHLORIDE 0.9% 500 ML 500 ML IV SCH (10:15)
[2021-09-25 10:45] LABS: Basophils # (A) 0.1 k/uL (0-0.2); Basophils % (A) 0 %; Eosinophils # (A) 0.1 k/uL (0-0.7); Eosinophils % (A) 1 %; HCT 38.6 % (39.0-53.0); HGB 12.6 gm/dL (13.0-17.5); Lymphocytes # (A) 2.6 k/uL (1.0-4.8); Lymphocytes % (A) 19 %; MCH 28.1 pg (25.0-35.0); MCHC 32.7 g/dL (31.0-37.0); MCV 86.1 fL (80.0-100.0); Mean Platelet Volume 8.8; Monocytes # (A) 0.7 k/uL (0-1.0); Monocytes % (A) 5 %; Neutrophils # (A) 10.5 k/uL (1.3-7.7); Neutrophils % (A) 74 %; Platelet Count 242 k/uL (150-450); RBC 4.48 m/uL (4.30-5.90); RDW 14.5 % (11.5-15.5); WBC 14.3 k/uL (3.8-10.6)
[2021-09-25 11:01] LABS: ALT 25 U/L (4-49); AST 21 U/L (17-59); African American GFR (CKD) >90 (>60 ml/min/1.73 sqM); Albumin 2.9 g/dL (3.5-5.0); Alkaline Phosphatase 92 U/L (38-126); Anion Gap 6 mmol/L; Blood Urea Nitrogen 8 mg/dL (9-20); Calcium 8.2 mg/dL (8.4-10.2); Carbon Dioxide 23 mmol/L (22-30); Chloride 100 mmol/L (98-107); Glucose 328 mg/dL (74-99); Lipase 68 U/L (23-300); Non-African American GFR(CKD) >90 (>60 ml/min/1.73 sqM); Potassium 4.1 mmol/L (3.5-5.1); Sodium 129 mmol/L (137-145); Total Bilirubin 0.6 mg/dL (0.2-1.3); Total Protein 6.3 g/dL (6.3-8.2)
[2021-09-25 12:00] LABS: Glucose,Whole Blood 310 mg/dL (75-99)
[2021-09-25 16:31] LABS: Glucose,Whole Blood 337 mg/dL (75-99)
[2021-09-25 17:07] VITALS: RESP 16
[2021-09-25 20:29] LABS: Glucose,Whole Blood 316 mg/dL (75-99)
[2021-09-25 20:36] VITALS: BP 114/65; PULSE 83; TEMP 98.1
[2021-09-25] MEDS ORDERED: INSULIN DETEMIR (LEVEMIR) 100 UNIT/ML SYR SQ SCH (21:00)
--- NOTE | 2021-09-28 19:48 | PN ---
PROGRESS NOTE DATE OF SERVICE: 09/24/2021 CHIEF COMPLAINT: DKA. HISTORY OF PRESENT ILLNESS: This gentleman's blood sugars are coming down. He is still slightly nauseated. He has had no shortness of breath or chest pain. PHYSICAL EXAMINATION: Chest is clear. Hydration has improved. Cardiac exam is normal. The abdomen is flat, soft and nontender. IMPRESSION: Diabetic ketoacidosis with dehydration. PLAN: Continue with insulin management and increase his basal insulin and diet. He will probably be able to go home in the next day or two. MMODL / IJN: [id number] /
--- NOTE | 2021-09-28 20:09 | DS ---
DISCHARGE SUMMARY DATE OF DISCHARGE: 09/25/2021 CHIEF COMPLAINT: DKA. HISTORY OF PRESENT ILLNESS AND PHYSICAL EXAMINATION: Details of this man's history and physical can be found in the initial workup. LABORATORY STUDIES: While he was in the hospital he had laboratory studies, details of which can be found in the laboratory section of his chart. COURSE IN THE HOSPITAL: After admission he was placed on bedrest, started on intravenous fluids and DKA protocol. Blood sugars came down fairly quickly and his gap closed. He was switched over to basal bolus program and continued to do well. He was doing well, eating and moving about without any difficulty, with improved blood sugars on September 25. He will be discharged on basal bolus insulin program and we will follow him up in the office in several days. FINAL DIAGNOSIS: 1. Diabetic ketoacidosis. 2. Dehydration. OPERATIONS: None. CONSULTATIONS: None. He is improved. DARRICK / CRISTI: [id number] /
--- NOTE | 2021-09-29 20:31 | HP ---
HISTORY AND PHYSICAL CHIEF COMPLAINT: DKA. HISTORY OF PRESENT ILLNESS: This is another admission for this 30-year-old type 1 diabetic. He presented to the emergency room with abdominal pain with nausea and vomiting. He had no diarrhea. He was in diabetic ketoacidosis. REVIEW OF SYSTEMS: He denies any hematemesis, neurologic problems, chest pain, shortness of breath, hematemesis, dysuria, etc. Past medical history, family history, and personal and social histories are all otherwise unremarkable or noncontributory. He has not been taking his insulin. He is NOT ALLERGIC TO ANY MEDICATION. Past medical history, family history, and personal and social histories are otherwise unremarkable or unchanged. When last seen, he was on glimepiride, lisinopril, vitamin D, metformin. Clearly, his diabetes has gotten to the point where he will require insulin. He does smoke. PHYSICAL EXAMINATION: Blood pressure is 110/70 with a pulse of 113, respirations of 36, and he is afebrile. In general he appeared to be slender and dehydrated. Head, ears, eyes, nose, mouth and throat were normal except for his mucous membranes, which were dry. There were no neck masses. The chest was clear. The cardiac exam demonstrated sinus tachycardia and the abdomen was soft and flat. Bowel sounds were heard. Extremities were normal. Neurologically he was intact. He is admitted to the hospital with the diagnoses: 1. Abdominal pain. 2. Nausea and vomiting. 3. Dehydration. 4. Uncontrolled type 1 diabetes mellitus. PLAN: 1. Bedrest. 2. IV fluids. 3. Insulin drip. 4. Follow for any further difficulty or problems with his abdominal pain. MMODL / IJN: [id number] /
== END 2021-09-25 21:10 | disposition home or self-care (01) | DRG 637 ==
LOC: EC 17:55 → 3SCARD 20:24
PROVIDERS: ADMIT Family Medicine; ATTEND Family Medicine
PROC: XW033E6 Introduction of Etesevimab Monoclonal Antibody into Peripheral Vein, Percutaneous Approach, New Technology Group 6 (ICD-10-PCS; principal; 2021-09-23)
PROC: XW033F6 Introduction of Bamlanivimab Monoclonal Antibody into Peripheral Vein, Percutaneous Approach, New Technology Group 6 (ICD-10-PCS; principal; 2021-09-23)
DX: E11.10 Type 2 diabetes mellitus with ketoacidosis without coma (principal); U07.1 COVID-19; D72.829 Elevated white blood cell count, unspecified; E86.0 Dehydration; F17.210 Nicotine dependence, cigarettes, uncomplicated; Z71.6 Tobacco abuse counseling; Z79.84 Long term (current) use of oral hypoglycemic drugs; Z79.899 Other long term (current) drug therapy; Z87.39 Personal history of other diseases of the musculoskeletal system and connective tissue; Z98.890 Other specified postprocedural states
CPT/HCPCS: 36415; 74177; 80048; 80051; 80053; 81001; 82009; 82150; 82565; 82947; 83036; 83605; 83690; 84100; 84520; 85025; 85027; 87635; 96361; 96374; 99285

== ENCOUNTER 2022-01-21 11:04 | Observation (INO) | payer OTHER ==
[2022-01-21] MEDS ORDERED: SODIUM CHLORIDE 0.9% 1,000 ML IV STA ×2 (12:39→14:19)
--- NOTE | 2022-01-21 12:41 | ED ---
General Adult HPI - General Chief complaint: Back Pain/Injury Stated complaint: Abd/back pain Time Seen by Provider: 01/21/22 12:31 Source: patient Mode of arrival: ambulatory Limitations: no limitations - History of Present Illness Initial comments: Dictation was produced using [employer] dictation software. please excuse any grammatical, word or spelling errors. Chief Complaint: 31-year-old insulin-dependent diabetic male presents emergency department for right-sided upper quadrant abdominal pain and epigastric pain. History of Present Illness: 31-year-old male he is noncompliant with insulin medication. He is diabetic and insulin-dependent. He has not taken his diabetes medication in approximately 2 months. Patient was admitted to the hospital for DKA in October. Patient states he is here today for 2-3 days of epigastric pain that radiates to the lower abdomen and right flank area. Patient has any fever. No nausea vomiting. No diarrhea. Denies any sore throat or runny nose. No obvious sick exposures. Patient has a history of abdominal surgery. He did have a computed tomography scan in September of this year that showed pancreatitis with fluid extending inferiorly to the sacrum. The ROS documented in this emergency department record has been reviewed and confirmed by me. Those systems with pertinent positive or negative responses have been documented in the HPI. All other systems are other negative and/or noncontributory. PHYSICAL EXAM: General Impression: Alert and oriented x3, not in acute distress HEENT: Normocephalic atraumatic, extra-ocular movements intact, pupils equal and reactive to light bilaterally, dry mucous membranes Cardiovascular: Heart regular rate and rhythm Chest: Able to complete full sentences, no retractions, no tachypnea Abdomen: abdomen soft, non-tender, non-distended, no organomegaly Musculoskeletal: Pulses present and equal in all extremities, no peripheral sangeeta ma Motor: no focal deficits noted Neurological: CN II-XII grossly intact, no focal motor or sensory deficits noted Skin: Intact with no visualized rashes Psych: Normal affect and mood ED course: 31-year-old male presents emergency department for abdominal pain and flank pain. Patient is a noncompliant insulin-dependent diabetic. Vital signs upon arrival shows heart rate of 102, rest of vital signs within acceptable limits. Laboratory evaluation obtained. CBC is unremarkable. Metabolic panel shows hyponatremia 125 likely secondary to hypoxia. Mild acidosis of 18. His likely related more to dehydration as opposed to diabetic ketoacidosis. Patient minimally acidotic. He does however have 2+ ketones. At this point I do not believe patient requires insulin drip. He is given 2 L bolus of fluids and started on high rate maintenance IV fluids. Patient given 10 mg of IV insulin. Diabeticdiet. According to lab patient's lipase levels to elevated to be measured due to lipemic substance of blood. There is concern of pancreatitis. [facility]. Neurology consulted for pancreatitis. - Related Data Home Medications Medication Instructions Recorded Confirmed No Known Home Medications 01/21/22 01/21/22 Allergies Allergy/AdvReac Type Severity Reaction Status Date / Time No Known Allergies Allergy Verified 01/21/22 11:14 Review of Systems ROS Statement: Those systems with pertinent positive or pertinent negative responses have been documented in the HPI. ROS Other: All systems not noted in ROS Statement are negative. Past Medical History Past Medical History: Diabetes Mellitus Additional Past Medical History / Comment(s): Type 1 DM History of Any Multi-Drug Resistant Organisms: None Reported Past Surgical History: Orthopedic Surgery Additional Past Surgical History / Comment(s): knee Past Anesthesia/Blood Transfusion Reactions: No Reported Reaction Past Psychological History: No Psychological Hx Reported Smoking Status: Current some day smoker Past Alcohol Use History: None Reported Past Drug Use History: Marijuana - Past Family History Mother Family Medical History: Diabetes Mellitus General Exam Limitations: no limitations Course Vital Signs 01/21/22 01/21/22 11:12 13:08 Temperature 98.3 F Pulse Rate 102 H 76 Respiratory 18 18 Rate Blood Pressure 133/89 128/92 O2 Sat by Pulse 94 L 97 Oximetry Medical Decision Making - Lab Data Result diagrams: 01/21/22 12:44 01/21/22 12:44 Lab Results 01/21/22 01/21/22 01/21/22 Range/Units 12:44 12:44 13:13 WBC 13.9 H (3.8-10.6) k/uL RBC 5.31 (4.30-5.90) m/uL Hgb 15.4 (13.0-17.5) gm/dL Hct 43.9 (39.0-53.0) % MCV 82.7 (80.0-100.0) fL MCH 28.8 (25.0-35.0) pg MCHC 35.0 (31.0-37.0) g/dL RDW 13.4 (11.5-15.5) % Plt Count 302 (150-450) k/uL MPV 8.7 Neutrophils % 72 % Lymphocytes % 21 % Monocytes % 4 % Eosinophils % 1 % Basophils % 1 % Neutrophils # 10.0 H (1.3-7.7) k/uL Lymphocytes # 2.9 (1.0-4.8) k/uL Monocytes # 0.6 (0-1.0) k/uL Eosinophils # 0.2 (0-0.7) k/uL Basophils # 0.1 (0-0.2) k/uL Sodium 125 L (137-145) mmol/L Potassium 4.8 (3.5-5.1) mmol/L Chloride 95 L (98-107) mmol/L Carbon Dioxide 18 L (22-30) mmol/L Anion Gap 12 mmol/L BUN 13 (9-20) mg/dL Creatinine 0.64 L (0.66-1.25) mg/dL Est GFR (CKD-EPI)AfAm >90 (>60 ml/min/1.73 sqM) Est GFR (CKD-EPI)NonAf >90 (>60 ml/min/1.73 sqM) Glucose 610 H* (74-99) mg/dL Calcium 9.3 (8.4-10.2) mg/dL Total Bilirubin 0.5 (0.2-1.3) mg/dL AST 28 (17-59) U/L ALT 46 (4-49) U/L Alkaline Phosphatase 101 (38-126) U/L Total Protein 7.6 (6.3-8.2) g/dL Albumin 4.4 (3.5-5.0) g/dL Lipase (23-300) U/L Urine Color Light Yellow Urine Appearance Clear (Clear) Urine pH 5.0 (5.0-8.0) Ur Specific [place] 1.037 H (1.001-1.035) Urine Protein Trace H (Negative) Urine Glucose (UA) 4+ H (Negative) Urine Ketones 2+ H (Negative) Urine Blood Negative (Negative) Urine Nitrite Negative (Negative) Urine Bilirubin Negative (Negative) Urine Urobilinogen <2.0 (<2.0) mg/dL Ur Leukocyte Esterase Negative (Negative) Disposition Clinical Impression: Pancreatitis, Hyperglycemia Disposition: ADMITTED IP TO THIS HOSP Condition: Serious Referrals: Zheng Steen MD [Primary Care Provider] - 1-2 days Decision Time: 14:36
[2022-01-21 13:12] LABS: Chloride 95 mmol/L (98-107); Potassium 4.8 mmol/L (3.5-5.1); Sodium 125 mmol/L (137-145)
[2022-01-21 13:28] LABS: Appearance,Urine Clear (Clear); Bilirubin,Urine Negative (Negative); Blood,Urine Negative (Negative); Color,Urine Light Yellow; Glucose,Urine (UA) 4+ (Negative); Leukocyte Esterase,Urine Negative (Negative); Nitrite,Urine Negative (Negative); Protein,Urine Trace (Negative); Specific Gravity,Urine 1.037 (1.001-1.035); Urobilinogen,Urine <2.0 mg/dL (<2.0)
[2022-01-21 13:36] LABS: Basophils # (A) 0.1 k/uL (0-0.2); Basophils % (A) 1 %; Eosinophils # (A) 0.2 k/uL (0-0.7); Eosinophils % (A) 1 %; HCT 43.9 % (39.0-53.0); Lymphocytes # (A) 2.9 k/uL (1.0-4.8); Lymphocytes % (A) 21 %; MCV 82.7 fL (80.0-100.0); Mean Platelet Volume 8.7; Monocytes # (A) 0.6 k/uL (0-1.0); Monocytes % (A) 4 %; Neutrophils % (A) 72 %; Platelet Count 302 k/uL (150-450); RBC 5.31 m/uL (4.30-5.90); RDW 13.4 % (11.5-15.5); WBC 13.9 k/uL (3.8-10.6)
[2022-01-21 13:39] LABS: Ketones,Urine 2+ (Negative)
[2022-01-21 13:41] LABS: HGB 15.4 gm/dL (13.0-17.5); MCH 28.8 pg (25.0-35.0)
[2022-01-21 14:13] LABS: African American GFR (CKD) >90 (>60 ml/min/1.73 sqM); Anion Gap 12 mmol/L; Non-African American GFR(CKD) >90 (>60 ml/min/1.73 sqM)
[2022-01-21 14:15] LABS: Carbon Dioxide 18 mmol/L (22-30); Glucose 610 mg/dL (74-99)
[2022-01-21 14:16] LABS: ALT 46 U/L (4-49); AST 28 U/L (17-59); Albumin 4.4 g/dL (3.5-5.0); Alkaline Phosphatase 101 U/L (38-126); Blood Urea Nitrogen 13 mg/dL (9-20); Calcium 9.3 mg/dL (8.4-10.2); Total Bilirubin 0.5 mg/dL (0.2-1.3); Total Protein 7.6 g/dL (6.3-8.2)
[2022-01-21] MEDS ORDERED: INSULIN REGULAR 100 UNIT/ML VIAL (IV) IV ONE (14:19)
[2022-01-21] MEDS ORDERED: NALOXONE 0.4 MG/ML 1 ML VIAL IV PRN (14:32)
[2022-01-21] MEDS: SODIUM CHLORIDE 0.9% 1,000 ML IV SCH ×2 (15:05→21:31)
[2022-01-21 16:02] LABS: Glucose,Whole Blood 324 mg/dL (75-99)
[2022-01-21] MEDS: INSULIN ASPART (NovoLOG) 100 UNIT/ML VIAL SQ SCH ×2 (16:10→21:29)
[2022-01-21] MEDS: HEPARIN SODIUM,PORCINE/PF 5,000 UNIT/0.5 ML SYRINGE SQ SCH (16:10)
[2022-01-21] MEDS: MORPHINE SULFATE 2 MG/ML SYRINGE IVP PRN (16:12)
[2022-01-21 17:58] LABS: Glucose,Whole Blood 286 mg/dL (75-99)
[2022-01-21 21:20] LABS: Glucose,Whole Blood 338 mg/dL (75-99)
[2022-01-22] MEDS: HEPARIN SODIUM,PORCINE/PF 5,000 UNIT/0.5 ML SYRINGE SQ SCH ×4 (00:53→23:30)
[2022-01-22 00:56] LABS: Glucose,Whole Blood 311 mg/dL (75-99)
[2022-01-22 04:27] LABS: Glucose,Whole Blood 313 mg/dL (75-99)
[2022-01-22] MEDS ORDERED: CALCIUM CARBONATE 500 MG CHEWABLE PO PRN (04:43)
[2022-01-22] MEDS ORDERED: INSULIN ASPART (NovoLOG) 100 UNIT/ML VIAL SQ ONE (04:43)
[2022-01-22] MEDS: SODIUM CHLORIDE 0.9% 1,000 ML IV SCH ×3 (04:53→23:30)
[2022-01-22] MEDS: ONDANSETRON 4 MG/2 ML VIAL IVP PRN ×2 (04:55→20:48)
[2022-01-22 08:51] LABS: Basophils # (A) 0.04 X 10*3/uL (0.00-0.10); Basophils % (A) 0.3 %; Eosinophils # (A) 0.09 X 10*3/uL (0.04-0.35); Eosinophils % (A) 0.6 %; HCT 39.5 % (39.6-50.0); HGB 14.4 g/dL (13.0-17.0); Immature Grans, Automated 0.6 %; Lymphocytes # (A) 3.11 X 10*3/uL (0.90-5.00); MCH 29.8 pg (27.0-32.0); MCHC 36.5 g/dL (32.0-37.0); MCV 81.8 fL (80.0-97.0); Mean Platelet Volume 12.2 fL (9.5-12.2); Monocytes # (A) 0.99 X 10*3/uL (0.20-1.00); Monocytes % (A) 6.4 %; NRBC Per 100 WBC 0 /100 WBCS (0.0-0.0); Neutrophils # (A) 11.26 X 10*3/uL (1.80-7.70); Neutrophils % (A) 72.1 %; Platelet Count 288 X 10*3/uL (140-440); RBC 4.83 X 10*6/uL (4.40-5.60); RDW 13.2 % (11.5-14.5); WBC 15.58 X 10*3/uL (4.50-10.00)
--- NOTE | 2022-01-22 08:52 | US ---
EXAMINATION TYPE: US abdomen complete DATE OF EXAM: 01/22/2022 COMPARISON: NONE CLINICAL HISTORY: RUQ pain. pain pancreatitis diabetic EXAM MEASUREMENTS: Liver Length: 19.6 cm Gallbladder Wall: .2 cm CBD: .5 cm Spleen: 12.6 cm Right Kidney: 12.3 x 4.7 x 5.6 cm Left Kidney: 11.7 x 4.8 x 4.4 cm Pancreas: Obscured by bowel gas Liver: wnl Gallbladder: wnl Evidence for sonographic Davison's sign: No CBD: wnl Spleen: wnl Right Kidney: wnl Left Kidney: wnl Upper IVC: wnl Abd Aorta: wnl The liver is homogenous. The intrahepatic portion of the IVC and proximal abdominal aorta are within normal limits. There is no evidence of cholelithiasis. Common bile duct is unremarkable. The visu alized portions of the pancreas are homogenous. The spleen is unremarkable. Kidneys are symmetric a nd free of hydronephrosis. No renal lesions are seen. IMPRESSION: No significant abnormality seen
[2022-01-22] MEDS ORDERED: FAMOTIDINE 20 MG TAB PO SCH (09:00)
[2022-01-22 09:07] LABS: Lipase 46 U/L (14-60)
[2022-01-22 09:27] LABS: ALT <5 U/L (10-49); AST <5 U/L (14-35); African American GFR (CKD) 143.7 (60.0-200.0); Albumin 3.4 g/dL (3.8-4.9); Alkaline Phosphatase 68 U/L (41-126); BUN/Creat Ratio 11.14 Ratio (12.00-20.00); Blood Urea Nitrogen 7.8 mg/dL (9.0-27.0); Calcium 8.4 mg/dL (8.7-10.3); Carbon Dioxide 17.1 mmol/L (20.0-27.5); Chloride 99 mmol/L (96-109); Glucose 287 mg/dL (70-110); Potassium 4.4 mmol/L (3.5-5.5); Sodium 128 mmol/L (135-145); Total Protein 5.4 g/dL (6.2-8.2)
[2022-01-22 09:37] LABS: Glucose,Whole Blood 283 mg/dL (75-99)
[2022-01-22] MEDS: INSULIN ASPART (NovoLOG) 100 UNIT/ML VIAL SQ SCH ×4 (09:46→20:49)
[2022-01-22] MEDS: MORPHINE SULFATE 2 MG/ML SYRINGE IVP PRN (09:46)
--- NOTE | 2022-01-22 10:51 | P.HPIM ---
History of Present Illness H&P Date: 01/21/22 Chief Complaint: Abdominal pain Patient is a 31-year-old male with a known history of diabetes type 1, history of DKA, pancreatitis and currently everyday smoker and history of marijuana use presents to ER with complaints of abdominal pain mainly in the epigastric region and sometimes radiating to the back. Patient is noncompliant with insulin regimen. Patient has not taken his medications for the past 2 months. Patient has been feeling very weak. Has been having polyuria and polydipsia.. Patient was recently admitted to hospital in October for DKA. Patient has been having nausea and episodes of vomiting. No diarrhea. No complaints of chest pain or shortness of breath. No dysuria or hematuria. Laboratory test showed WBC 13.9 hemoglobin 15.4 and platelets 302 Sodium 135 potassium 4.8 chloride 95 bicarb is 18 BUN 13 and creatinine 0.64 blood sugar is 6.0 on admission [place] is not elevated lipase level unable to perform due to grossly lipemic specimen. Urinalysis is negative for infection. 4+ glucose and 2+ ketones. Review of Systems Constitutional: Patient denies any fever or chills . No generalized weakness or weight loss. Abdomen: Patient does have nausea and vomiting and abdominal pain. No diarrhea.. Cardiovascular: Patient denies any chest pain or short of breath no palpitations. Respiratory: patient denied any cough is from production. No shortness of breath Neurologic: Patient denied any numbness or tingling headache. Musculoskeletal: Patient denies any complaints of joint swelling or deformity. Skin: Negative Psychiatric: Negative Endocrine: No heat or cold intolerance. No recent weight gain. Genitourinary: No dysuria or hematuria. All other 14 point ROS negative except the above Past Medical History Past Medical History: Diabetes Mellitus Additional Past Medical History / Comment(s): IDDM type 1, DKA, pancreatitis, bilateral leg cramps. History of Any Multi-Drug Resistant Organisms: None Reported Past Surgical History: Orthopedic Surgery Additional Past Surgical History / Comment(s): R knee ACL surgery Past Anesthesia/Blood Transfusion Reactions: No Reported Reaction Past Psychological History: No Psychological Hx Reported Additional Psychological History / Comment(s): Pt resides with his significant other. He does not drive, he uses [facility]. Smoking Status: Current every day smoker Past Alcohol Use History: None Reported Additional Past Alcohol Use History / Comment(s): Pt started smoking in 2000 and is a 2 ppd smoker. Past Drug Use History: Marijuana Additional Drug Use History / Comment(s): Pt has not uses marijuana for one year he states d/t being on probation. - Past Family History Mother Family Medical History: Diabetes Mellitus Father History Unknown: Yes Medications and Allergies Home Medications Medication Instructions Recorded Confirmed Type No Known Home Medications 01/21/22 01/21/22 History Allergies Allergy/AdvReac Type Severity Reaction Status Date / Time No Known Allergies Allergy Verified 01/21/22 11:14 Physical Exam Vitals: Vital Signs Temp Pulse Resp BP Pulse Ox 01/21/22 13:08 76 18 128/92 97 01/21/22 11:12 98.3 F 102 H 18 133/89 94 L Intake and Output 01/21/22 01/21/22 01/21/22 06:59 14:59 22:59 Other: Weight 90.718 kg 90.718 kg PHYSICAL EXAMINATION: Patient is lying in the bed comfortably, no acute distress, awake alert and oriented.. HEENT: Normocephalic. Neck is supple. Pupils reactive. Nostrils clear. Oral cavity is moist. Neck reveals no JVD, carotid bruits, or thyromegaly. CHEST EXAMINATION: Trachea is central. Symmetrical expansion. Lung robin clear to auscultation and percussion. CARDIAC: Normal S1, S2 with no gallops. No murmurs ABDOMEN: Soft. Epigastric tenderness but no guarding or rigidity. Bowel sounds normal. No organomegaly. No abdominal bruits. Extremities: reveal no edema. No clubbing or cyanosis Neurologically awake, alert, oriented x3 with well-coordinated movements. No focal deficits noted Skin: No rash or skin lesions. Psychiatric: Coperative. Nonsuicidal Musculoskeletal: No joint swelling or deformity. Normal range of motion. Results CBC & Chem 7: 01/22/22 06:28 01/22/22 06:28 Labs: Abnormal Lab Results - Last 24 Hours (Table) 01/21/22 01/21/22 01/21/22 Range/Units 12:44 12:44 13:13 WBC 13.9 H (3.8-10.6) k/uL Neutrophils # 10.0 H (1.3-7.7) k/uL Sodium 125 L (137-145) mmol/L Chloride 95 L (98-107) mmol/L Carbon Dioxide 18 L (22-30) mmol/L Creatinine 0.64 L (0.66-1.25) mg/dL Glucose 610 H* (74-99) mg/dL Ur Specific [place] 1.037 H (1.001-1.035) Urine Protein Trace H (Negative) Urine Glucose (UA) 4+ H (Negative) Urine Ketones 2+ H (Negative) Thrombosis Risk Factor Assmnt - DVT/VTE Prophylaxis DVT/VTE Prophylaxis: Pharmacologic Prophylaxis ordered - Choose All That Apply Any of the Below Risk Factors Present?: Yes Each Factor Represents 1 point: Obesity (BMI >25) Other Risk Factors: No Other congenital or acquired thrombophilia - If yes, enter type in comment: No Thrombosis Risk Factor Assessment Total Risk Factor Score: 1 Thrombosis Risk Factor Assessment Level: Low Risk Assessment and Plan Assessment: Hyperglycemia with uncontrolled diabetes type 1 due to noncompliance with insu ibis. Acute pancreatitis and possible gastritis Hypovolemic hyponatremia and pseudohyponatremia Currently everyday smoker History of marijuana use History of admission with DKA previously DVT prophylaxis. Plan: Patient be current on IV hydration nothing by mouth until pain gets better. Patient will be current on morphine IV as needed for pain and continue with insulin sliding scale and patient will be started on insulin regimen. Follow-up closely. A1c level was ordered. Smoking cessation has been counseled extensively. Gastroenterology service was consulted for recurrent pancreatitis. Time with Patient: Greater than 30
[2022-01-22] MEDS ORDERED: PANTOPRAZOLE 40 MG/10 ML VIAL IVP SCH (11:00)
[2022-01-22] MEDS: IOPAMIDOL CONTRAST (ORAL USE) VIAL PO PRN ×2 (11:29→12:31)
[2022-01-22] MEDS: polyethylene glycoL 3350 17 GM POWD.PACK PO SCH (12:32)
[2022-01-22 13:13] LABS: Glucose,Whole Blood 300 mg/dL (75-99)
--- NOTE | 2022-01-22 13:44 | P.CONS ---
History of Present Illness - Reason for Consult Consult date: 01/22/22 Pancreatitis Requesting physician: Donavan Gilmore - Chief Complaint Abdominal pain, nausea and vomiting - History of Present Illness This is a 31-year-old male who presented to the emergency department with complaints of epigastric and right upper quadrant pain that began 2 days ago and has been associated with nausea and vomiting. States he had nonbilious nonbloody emesis this morning. He has a past medical history of diabetes mellitus which he states he was diagnosed 6 months ago. States he has not been taking any medications for the last 2-3 months and has not been managing his diabetes as he has not had a glucometer. On presentation patient had a glucose level of 610 with ketones in his urine. Apparently patient was seen in the emergency department in September of this year for abdominal pain and had a CT of the abdomen and pelvis that showed pancreatitis. He states this pain is worse. Denies any history of alcohol use, no new medications, no history of gallstone pancreatitis. Admitting labs WBC 13.9 hemoglobin 15 hematocrit 43 platelet count 302,000 sodium 125 potassium 4.8 BUN 13 creatinine 0.64 glucose 610 total bilirubin 0.5 AST 20 ALT 46 alkaline phosphatase 101 lipase 203 Review of Systems REVIEW OF SYSTEMS: CARDIOPULMONARY: No chest pain or shortness of breath. Gastrointestinal: Epigastric and right upper quadrant pain associated with nausea vomiting. No hematemesis, coffee-ground emesis. No rectal bleeding, or melena. GENITOURINARY: No dysuria or hematuria. MUSCULOSKELETAL: Reports normal range of motion. SKIN: No rashes. No jaundice. ENDOCRINE: No chills, fevers. No excessive weight gain or loss. No polydipsia or polyuria. PSYCHIATRIC: Unremarkable. NEUROLOGY: No change in mental status. Denies dizziness, headache. ENT: Vision unremarkable. CONSTITUTIONAL: No recent weight loss. No fever, chills, night sweats. Past Medical History Past Medical History: Diabetes Mellitus Additional Past Medical History / Comment(s): IDDM type 1, DKA, pancreatitis, bilateral leg cramps. History of Any Multi-Drug Resistant Organisms: None Reported Past Surgical History: Orthopedic Surgery Additional Past Surgical History / Comment(s): R knee ACL surgery Past Anesthesia/Blood Transfusion Reactions: No Reported Reaction Past Psychological History: No Psychological Hx Reported Additional Psychological History / Comment(s): Pt resides with his significant other. He does not drive, he uses [facility]. Smoking Status: Current every day smoker Past Alcohol Use History: None Reported Additional Past Alcohol Use History / Comment(s): Pt started smoking in 2000 and is a 2 ppd smoker. Past Drug Use History: Marijuana Additional Drug Use History / Comment(s): Pt has not uses marijuana for one year he states d/t being on probation. - Past Family History Mother Family Medical History: Diabetes Mellitus Father History Unknown: Yes Medications and Allergies Home Medications Medication Instructions Recorded Confirmed Type No Known Home Medications 01/21/22 01/21/22 History Allergies Allergy/AdvReac Type Severity Reaction Status Date / Time No Known Allergies Allergy Verified 01/21/22 11:14 Physical Exam Vitals: Vital Signs Temp Pulse Pulse Resp BP BP Pulse Ox 01/22/22 06:11 98.4 F 80 101/63 96 01/22/22 05:00 100.3 F H 88 16 99/61 96 01/22/22 04:22 98.6 F 92 18 122/78 94 L 01/21/22 20:00 98.1 F 76 16 121/75 96 01/21/22 18:29 98.7 F 69 18 119/64 95 01/21/22 15:56 92 18 137/79 95 01/21/22 13:08 76 18 128/92 97 01/21/22 11:12 98.3 F 102 H 18 133/89 94 L Intake and Output 01/21/22 01/22/22 01/22/22 22:59 06:59 14:59 Other: Voiding Method Toilet # Voids 1 Weight 90.718 kg General appearance: The patient is alert, oriented, appears in no acute distress. HET: Head is normocephalic and atraumatic. Conjunctiva pink. Sclera anicteric. Neck: Supple without lymphadenopathy. Trachea midline. Heart: S1 S2. Regular rate and rhythm. Lungs: Clear to auscultation. Abdomen: Soft, epigastric and right upper quadrant tenderness, nondistended with bowel sounds. No guarding or rigidity. Skin: No rashes. No jaundice. Extremities: Normal skin color and turgor. No pedal edema. Neurological: No focal deficits. Alert and oriented x3. Results CBC & Chem 7: 01/22/22 06:28 01/22/22 06:28 Labs: Abnormal Lab Results - Last 24 Hours (Table) 01/21/22 01/21/22 01/21/22 Range/Units 12:44 12:44 13:13 WBC 13.9 H (3.8-10.6) k/uL Hct (39.6-50.0) % Immature Gran # (0.00-0.04) X 10*3/uL Neutrophils # 10.0 H (1.3-7.7) k/uL Sodium 125 L (137-145) mmol/L Chloride 95 L (98-107) mmol/L Carbon Dioxide 18 L (22-30) mmol/L BUN (9.0-27.0) mg/dL Creatinine 0.64 L (0.66-1.25) mg/dL BUN/Creatinine Ratio (12.00-20.00) Ratio Glucose 610 H* (74-99) mg/dL POC Glucose (mg/dL) (75-99) mg/dL Calcium (8.7-10.3) mg/dL AST (14-35) U/L ALT (10-49) U/L Total Protein (6.2-8.2) g/dL Albumin (3.8-4.9) g/dL Ur Specific [place] 1.037 H (1.001-1.035) Urine Protein Trace H (Negative) Urine Glucose (UA) 4+ H (Negative) Urine Ketones 2+ H (Negative) 01/21/22 01/21/22 01/21/22 Range/Units 15:59 17:56 21:19 WBC (3.8-10.6) k/uL Hct (39.6-50.0) % Immature Gran # (0.00-0.04) X 10*3/uL Neutrophils # (1.3-7.7) k/uL Sodium (137-145) mmol/L Chloride (98-107) mmol/L Carbon Dioxide (22-30) mmol/L BUN (9.0-27.0) mg/dL Creatinine (0.66-1.25) mg/dL BUN/Creatinine Ratio (12.00-20.00) Ratio Glucose (74-99) mg/dL POC Glucose (mg/dL) 324 H 286 H 338 H (75-99) mg/dL Calcium (8.7-10.3) mg/dL AST (14-35) U/L ALT (10-49) U/L Total Protein (6.2-8.2) g/dL Albumin (3.8-4.9) g/dL Ur Specific [place] (1.001-1.035) Urine Protein (Negative) Urine Glucose (UA) (Negative) Urine Ketones (Negative) 01/22/22 01/22/22 01/22/22 Range/Units 00:52 04:25 06:28 WBC 15.58 H (3.8-10.6) k/uL Hct 39.5 L (39.6-50.0) % Immature Gran # 0.09 H (0.00-0.04) X 10*3/uL Neutrophils # 11.26 H (1.3-7.7) k/uL Sodium (137-145) mmol/L Chloride (98-107) mmol/L Carbon Dioxide (22-30) mmol/L BUN (9.0-27.0) mg/dL Creatinine (0.66-1.25) mg/dL BUN/Creatinine Ratio (12.00-20.00) Ratio Glucose (74-99) mg/dL POC Glucose (mg/dL) 311 H 313 H (75-99) mg/dL Calcium (8.7-10.3) mg/dL AST (14-35) U/L ALT (10-49) U/L Total Protein (6.2-8.2) g/dL Albumin (3.8-4.9) g/dL Ur Specific [place] (1.001-1.035) Urine Protein (Negative) Urine Glucose (UA) (Negative) Urine Ketones (Negative) 01/22/22 01/22/22 Range/Units 06:28 09:36 WBC (3.8-10.6) k/uL Hct (39.6-50.0) % Immature Gran # (0.00-0.04) X 10*3/uL Neutrophils # (1.3-7.7) k/uL Sodium 128 L (137-145) mmol/L Chloride (98-107) mmol/L Carbon Dioxide 17.1 L (22-30) mmol/L BUN 7.8 L (9.0-27.0) mg/dL Creatinine (0.66-1.25) mg/dL BUN/Creatinine Ratio 11.14 L (12.00-20.00) Ratio Glucose 287 H (74-99) mg/dL POC Glucose (mg/dL) 283 H (75-99) mg/dL Calcium 8.4 L (8.7-10.3) mg/dL AST <5 L (14-35) U/L ALT <5 L (10-49) U/L Total Protein 5.4 L (6.2-8.2) g/dL Albumin 3.4 L (3.8-4.9) g/dL Ur Specific [place] (1.001-1.035) Urine Protein (Negative) Urine Glucose (UA) (Negative) Urine Ketones (Negative) Comments: Abdominal ultrasound:. No significant abnormality seen Assessment and Plan (1) Abdominal pain Narrative/Plan: 31-year-old male who presented to the emergency department with complaints of abdominal pain that started 2-3 days ago. States is her in the epigastric and went to the right upper quadrant as well as around to his back. Apparently patient does have a prior history of pancreatitis documented in his chart from September of this year showed on computed tomography scan. Patient had denied initially any history of pancreatitis. He denies any alcohol abuse. No new medications, and patient was recently diagnosed approximately 6 months ago with diabetes mellitus but has not followed up and has not been taking any medications for last 2-3 months duration. He was known to have a blood glucose level of 610 on admission. LFTs and lipase have been within normal limits. There was no initial imaging on admission. Ultrasound of the abdomen was ordered with out any abnormal findings. Unknown etiology of abdominal pain, cou ld be related to underlying pancreatitis seen on CT of abdomen and pelvis, however amylase and lipase have been normal. CT abdomen and pelvis also reporting acute inflammation of the gastric antrum/antritis and proximal duodenum/duodenal duodenitis that could be in the differential. Gastroenterolo xochitl will not be available in hospital this weekend and will consult general surgery for further evaluation. Current Visit: No Status: Acute Code(s): R10.9 - UNSPECIFIED ABDOMINAL PAIN SNOMED Code(s): 46073329 (2) Leukocytosis Current Visit: No Status: Acute Code(s): D72.829 - ELEVATED WHITE BLOOD CELL COUNT, UNSPECIFIED SNOMED Code(s): 813712470 (3) Hyperglycemia Current Visit: Yes Status: Acute Code(s): R73.9 - HYPERGLYCEMIA, UNSPECIFIED SNOMED Code(s): 04407334 Plan: 1. Continue symptomatic and supportive care 2. Aggressive IV hydration 3. Strict glycemic control 4. Protonix 40 mg twice a day 5. Continue with pain management per primary medicine 6. Abdominal Ultrasound ordered and reviewed 7. Computed tomography scan abdomen and pelvis ordered 8. Repeat daily CBC, CMP 9. IgG4, DANNY, triglycerides ordered 10. Consult to Gen. surgery to evaluate for abdominal pain, abnormal CT of abdomen with findings of pancreatitis and acute inflammation of the gastric antrum/antritis and proximal duodenum/duodenitis Thank you for allowing us to participate in the care of the patient, the GI service will sign off, gastroenterology will not be available at the hospital this weekend. If further evaluation by gastroenterology is required the patient will need transfer as per the primary team's discretion. Dr. Michelle Gates I agree with the dictator's note, documented as a scribe by Bernie IVEY.
--- NOTE | 2022-01-22 14:45 | CT ---
EXAMINATION TYPE: CT abdomen pelvis w con DATE OF EXAM: 01/22/2022 COMPARISON: CT abdomen and pelvis September 23, 2021 HISTORY: Abdominal and epigastric pain. History of pancreatitis CT DLP: 1092 mGycm, Automated Exposure Control for Dose Reduction was Utilized. CONTRAST: CT scan of the abdomen and pelvis is performed with oral and with IV Contrast, patient injected with 100 mL of Isovue 300. FINDINGS: LUNG BASES: Mild bibasilar linear scarring and/or atelectasis on current study. LIVER/GB: No significant abnormality is appreciated. PANCREAS: Pancreas overall normal in size without concerning solid or cystic mass or ductal dilatatio n. No areas of nonenhancement. No well-formed fluid collection is seen. SPLEEN: No significant abnormality is seen. ADRENALS: No significant abnormality is seen. KIDNEYS: No significant abnormality is seen. BOWEL: Oral contrast reaches level of the rectum. No suspicious small or large bowel dilatation. Ther e is focal moderate to severe wall thickening in the gastric antrum extending through the first and s econd portion of the duodenal sweep. There is fairly severe ill-defined fluid and fat stranding betwe en the pancreatic head and duodenal sweep. No free air is noted. PROSTATE/SEMINAL VESICLES: No gross abnormality seen. LYMPH NODES: No greater than 1cm abdominal or pelvic lymph nodes are appreciated. OSSEOUS STRUCTURES: No significant abnormality is seen. OTHER: Small focus of subcutaneous gas in the anterior right abdominal wall axial image 55 likely ref lects product of subcutaneous medicine injection.. IMPRESSION: Fairly severe inflammatory change right upper to mid abdomen favors product of a acute gr oove pancreatitis. Acute inflammation of the gastric antrum/antritis and proximal duodenum/duodenitis would be in the differential but favor reactive findings. No areas of nonenhancement or well-formed fluid collection. No free air.
[2022-01-22] MEDS ORDERED: HEPARIN SODIUM,PORCINE/PF 5,000 UNIT/0.5 ML SYRINGE SQ SCH (16:00)
[2022-01-22 17:01] LABS: Glucose,Whole Blood 262 mg/dL (75-99)
[2022-01-22 20:29] LABS: Glucose,Whole Blood 206 mg/dL (75-99)
[2022-01-22] MEDS: PANTOPRAZOLE 40 MG/10 ML VIAL IVP SCH (20:48)
[2022-01-22] MEDS: HYDROmorphone 0.5 MG/0.5 ML SYRINGE IVP PRN (23:32)
[2022-01-23 00:21] VITALS: RESP 18
[2022-01-23] MEDS: SODIUM CHLORIDE 0.9% 1,000 ML IV SCH ×4 (04:17→23:40)
[2022-01-23] MEDS: HYDROmorphone 0.5 MG/0.5 ML SYRINGE IVP PRN (04:42)
[2022-01-23] MEDS: ONDANSETRON 4 MG/2 ML VIAL IVP PRN (04:42)
[2022-01-23 07:04] LABS: Glucose,Whole Blood 248 mg/dL (75-99)
[2022-01-23] MEDS: INSULIN ASPART (NovoLOG) 100 UNIT/ML VIAL SQ SCH ×4 (08:25→20:27)
[2022-01-23] MEDS: HEPARIN SODIUM,PORCINE/PF 5,000 UNIT/0.5 ML SYRINGE SQ SCH ×3 (08:26→23:39)
[2022-01-23] MEDS: polyethylene glycoL 3350 17 GM POWD.PACK PO SCH (08:26)
[2022-01-23] MEDS: PANTOPRAZOLE 40 MG/10 ML VIAL IVP SCH ×2 (08:26→20:27)
[2022-01-23] MEDS ORDERED: INSULIN DETEMIR (LEVEMIR) 100 UNIT/ML SYR SQ ONE (11:30)
[2022-01-23 11:46] LABS: Glucose,Whole Blood 229 mg/dL (75-99)
[2022-01-23 12:47] LABS: African American GFR (CKD) 143.7 (60.0-200.0); Albumin 3.2 g/dL (3.8-4.9); Albumin/Globulin Ratio 1.19 (1.60-3.17); Anion Gap 14.1 mmol/L (10.00-18.00); BUN/Creat Ratio 7.86 Ratio (12.00-20.00); Blood Urea Nitrogen 5.5 mg/dL (9.0-27.0); Calcium 8.4 mg/dL (8.7-10.3); Carbon Dioxide 16.9 mmol/L (20.0-27.5); Globulin 2.7 g/dL (1.6-3.3); Potassium 4.8 mmol/L (3.5-5.5); Total Bilirubin 0.3 mg/dL (0.30-1.20); Total Protein 5.9 g/dL (6.2-8.2)
[2022-01-23 12:48] LABS: Basophils # (A) 0.04 X 10*3/uL (0.00-0.10); Basophils % (A) 0.3 %; Eosinophils # (A) 0.07 X 10*3/uL (0.04-0.35); Eosinophils % (A) 0.5 %; HCT 37.9 % (39.6-50.0); HGB 12.6 g/dL (13.0-17.0); Immature Grans, Automated 0.5 %; Lymphocytes # (A) 2.48 X 10*3/uL (0.90-5.00); Lymphocytes % (A) 17.4 %; MCH 27.9 pg (27.0-32.0); MCHC 33.2 g/dL (32.0-37.0); MCV 83.8 fL (80.0-97.0); Mean Platelet Volume 11.6 fL (9.5-12.2); NRBC Per 100 WBC 0 /100 WBCS (0.0-0.0); Neutrophils % (A) 74.3 %; Platelet Count 247 X 10*3/uL (140-440); RBC 4.52 X 10*6/uL (4.40-5.60); RDW 13.5 % (11.5-14.5); WBC 14.26 X 10*3/uL (4.50-10.00)
[2022-01-23 13:31] VITALS: BMI 30.4
--- NOTE | 2022-01-23 13:55 | P.GSCN ---
History of Present Illness Consult date: 01/23/22 History of present illness: REASON FOR CONSULTATION: Pancreatitis HISTORY OF PRESENT ILLNESS: The patient is a 31-year-old male with insulin- dependent diabetes type 1 and recurrent pancreatitis who was admitted due to recurrent epigastric abdominal pain and pancreatitis. CT of the abdomen and pelvis was obtained demonstrating abnormal findings of inflammation of the duodenum. General surgery was consulted. Patient is also being seen by gastroenterology. Patient reports his generalized crampy abdominal pain has improved since admission. He is aware similar attack 4 months ago. His diet is primarily fatty foods. PAST MEDICAL HISTORY: See list and reviewed PAST SURGICAL HISTORY: See list and reviewed MEDICATIONS: See list and reviewed ALLERGIES: See list and reviewed SOCIAL HISTORY: See list and reviewed FAMILY HISTORY: See list and reviewed REVIEW OF ORGAN SYSTEMS: CONSTITUTIONAL: No fevers or chills. No recent weight loss. Obesity BMI 30.4 EYES: Denies any trouble with vision. No glasses. HEENT: No difficulties with hearing. No nosebleeds. No difficulty swallowing. RESPIRATORY: Denies pneumonia. Denies any troubles with breathing or dyspnea on exertion. Has tobacco use. CARDIOVASCULAR: Denies any chest pain, palpitations, or recent heart attacks. GASTROINTESTINAL: Denies fatty food intolerance. Denies change in bowel habits and gas bloat. GENITOURINARY: Denies any blood in urine or increased urinary frequency. NEUROLOGICAL: Denies any numbness or tingling along the distal extremities. No seizure disorders or headaches. MUSCULOSKELETAL: Denies any back pain, stiffness or joint arthritis. SKIN: No current skin cancer. No rash. PSYCHIATRIC: Denies current depression or suicidal thoughts. ENDOCRINE: Denies current thyroid disorders. Has diabetes type 1, insulin- dependent poorly controlled. HEME/LYMPHATIC: Denies any lumps and bumps around the neck. No recent deep venous thrombosis. ALLERGY/IMMUNOLOGY: No immunoglobulin therapy. No immune deficiencies. BREAST: Denies current breast lumps, pain or nipple discharge. PHYSICAL EXAM: VITALS: Reviewed CONSTITUTIONAL: Well developed and in no acute distress. EYES: Conjuctivae without sclera icterus. Extraocular movements grossly intact. HEAD, EARS, NOSE, THROAT: Moist buccal mucosa. Head is atraumatic, normocephalic. Hears conversational speech. No nasal drainage. NECK: Supple. No JV distention. No thyroidomegaly. RESPIRATORY: Non-labored respirations and equal bilateral excursions. No gross wheezes. CARDIOVASCULAR: Palpable 2+ radial pulses. ABDOMEN: Tender epigastrium. LYMPH: No neck lymphadenopathy. MUSCULOSKELETAL: No clubbing, cyanosis or edema. SKIN: Warm and well perfused with good skin turgor. NEUROLOGIC: Cranial nerves II through XII grossly intact. No focal or lateralizing signs. PSYCH: Alert and oriented to person, place and time. CLINCAL LABS: Reviewed. Blood sugar glucose poorly controlled 280-300. WBC elev ated on admission 13.9 elevated to 14.26. Sodium down 125, hyponatremia. BSG on admission over 600. Lipase normal 203. Urine positive for ketones. IMAGING: Independently reviewed CT of the abdomen and pelvis demonstrates persistent inflammation of the duodenum as compared to his prior computed t omography scan from last hospitalization in September 2021 RADIOLOGY: Report reviewed CT of the abdomen and pelvis with focal thickening of antrum, duodenum. No free air. RECORDS: previous old records reviewed from Sep 2021 demonstating non- compliance. ASSESSMENT: 1. Abdominal pain, epigastric 2. Abnormal CT scan with peripancreatitis 3. Medical non-compliance 4. Diabetes type I, uncontrolled 5. Hypokalemia PLAN: 1. IV fluid hydration. 2. May start liquid diet after ultrasound 3. Recommend gallbladder ultrasound due to pancreatitis and risks for gallstones 4. May benefit from upper endoscopy due to persistent duodenal inflammation ADVANCE DIRECTIVE: Thank you for this kind consultation. Past Medical History Past Medical History: Diabetes Mellitus Additional Past Medical History / Comment(s): IDDM type 1, DKA, pancreatitis, bilateral leg cramps. History of Any Multi-Drug Resistant Organisms: None Reported Past Surgical History: Orthopedic Surgery Additional Past Surgical History / Comment(s): R knee ACL surgery Past Anesthesia/Blood Transfusion Reactions: No Reported Reaction Past Psychological History: No Psychological Hx Reported Additional Psychological History / Comment(s): Pt resides with his significant other. He does not drive, he uses [facility]. Smoking Status: Current every day smoker Past Alcohol Use History: None Reported Additional Past Alcohol Use History / Comment(s): Pt started smoking in 2000 and is a 2 ppd smoker. Past Drug Use History: Marijuana Additional Drug Use History / Comment(s): Pt has not uses marijuana for one year he states d/t being on probation. - Past Family History Mother Family Medical History: Diabetes Mellitus Father History Unknown: Yes Medications and Allergies Home Medications Medication Instructions Recorded Confirmed Type No Known Home Medications 01/21/22 01/21/22 History Allergies Allergy/AdvReac Type Severity Reaction Status Date / Time No Known Allergies Allergy Verified 01/21/22 11:14 Surgical - Exam Vital Signs Temp Pulse Resp BP Pulse Ox 98.3 F 102 H 18 133/89 94 L 01/21/22 11:12 01/21/22 11:12 01/21/22 11:12 01/21/22 11:12 01/21/22 11:12 Results - Labs 01/23/22 06:35 01/23/22 06:35 Abnormal Lab Results - Last 24 Hours (Table) 01/22/22 01/22/22 01/22/22 Range/Units 06:28 06:28 06:28 POC Glucose (mg/dL) (75-99) mg/dL Hemoglobin A1c 17.9 H (0.0-6.0) % Triglycerides 3482.00 H (0.00-149.00) mg/dL DANNY Screen POSITIVE A (NEGATIVE) 01/22/22 01/22/22 01/22/22 Range/Units 13:10 16:59 20:25 POC Glucose (mg/dL) 300 H 262 H 206 H (75-99) mg/dL Hemoglobin A1c (0.0-6.0) % Triglycerides (0.00-149.00) mg/dL DANNY Screen (NEGATIVE) 01/23/22 Range/Units 06:58 POC Glucose (mg/dL) 248 H (75-99) mg/dL Hemoglobin A1c (0.0-6.0) % Triglycerides (0.00-149.00) mg/dL DANNY Screen (NEGATIVE) Diabetes panel 01/22/22 01/22/22 Range/Units 06:28 06:28 Hemoglobin A1c 17.9 H (0.0-6.0) % Triglycerides 3482.00 H (0.00-149.00) mg/dL
[2022-01-23 17:12] LABS: Glucose,Whole Blood 189 mg/dL (75-99)
--- NOTE | 2022-01-23 18:59 | P.PN ---
Progress Note - Text Progress Note Date: 01/23/22 Addendum: US of gallbladder independently reviewed demostrates no gallstones. May start clear liquid diet.
[2022-01-23 20:17] LABS: Glucose,Whole Blood 241 mg/dL (75-99)
[2022-01-23] MEDS ORDERED: INSULIN DETEMIR (LEVEMIR) 100 UNIT/ML SYR SQ SCH (21:00)
[2022-01-24] MEDS: SODIUM CHLORIDE 0.9% 1,000 ML IV SCH ×2 (04:22→13:43)
[2022-01-24 07:20] LABS: Glucose,Whole Blood 201 mg/dL (75-99)
[2022-01-24] MEDS: HEPARIN SODIUM,PORCINE/PF 5,000 UNIT/0.5 ML SYRINGE SQ SCH (07:56)
[2022-01-24] MEDS: INSULIN ASPART (NovoLOG) 100 UNIT/ML VIAL SQ SCH ×4 (07:56→13:42)
[2022-01-24] MEDS: PANTOPRAZOLE 40 MG/10 ML VIAL IVP SCH (07:57)
[2022-01-24] MEDS: polyethylene glycoL 3350 17 GM POWD.PACK PO SCH (08:04)
[2022-01-24 09:32] LABS: Basophils # (A) 0.02 X 10*3/uL (0.00-0.10); Basophils % (A) 0.2 %; Eosinophils # (A) 0.18 X 10*3/uL (0.04-0.35); Eosinophils % (A) 1.9 %; HCT 38.7 % (39.6-50.0); HGB 12.4 g/dL (13.0-17.0); Immature Grans, Automated 0.5 %; Lymphocytes # (A) 3.32 X 10*3/uL (0.90-5.00); Lymphocytes % (A) 34.9 %; MCV 84.1 fL (80.0-97.0); Mean Platelet Volume 11.5 fL (9.5-12.2); Monocytes # (A) 0.71 X 10*3/uL (0.20-1.00); Monocytes % (A) 7.5 %; NRBC Per 100 WBC 0 /100 WBCS (0.0-0.0); Neutrophils # (A) 5.23 X 10*3/uL (1.80-7.70); Platelet Count 268 X 10*3/uL (140-440); RDW 13.9 % (11.5-14.5); WBC 9.51 X 10*3/uL (4.50-10.00)
--- NOTE | 2022-01-24 10:29 | P.PN ---
Subjective Progress Note Date: 01/22/22 Patient is a 31-year-old male with a known history of diabetes type 1, history of DKA, pancreatitis and currently everyday smoker and history of marijuana use presents to ER with complaints of abdominal pain mainly in the epigastric region and sometimes radiating to the back. Patient is noncompliant with insulin regimen. Patient has not taken his medications for the past 2 months. Patient has been feeling very weak. Has been having polyuria and polydipsia.. Patient was recently admitted to hospital in October for DKA. Patient has been having nausea and episodes of vomiting. No diarrhea. No complaints of chest pain or shortness of breath. No dysuria or hematuria. Laboratory test showed WBC 13.9 hemoglobin 15.4 and platelets 302 Sodium 135 potassium 4.8 chloride 95 bicarb is 18 BUN 13 and creatinine 0.64 blood sugar is 6.0 on admission [place] is not elevated lipase level unable to perform due to grossly lipemic specimen. Urinalysis is negative for infection. 4+ glucose and 2+ ketones. 01/22/2022. Patient is currently lying in the bed. Awake alert and oriented x3. Still complains of abdominal pain mainly in the epigastric region. Still nauseated. No episodes of vomiting. No fever no chills. Lipase level came down to 46 today. Other laboratory results showed triglyceride level 3482 and DANNY positive. Sodium 128 potassium 4.4 chloride 99 bicarb is 17; BUN 7.8 and creatinine 0.7 and blood sugar is 287 WBC 14.5 hemoglobin 14.4 and platelets 288 Current medications reviewed. Objective - Vital Signs Vital signs: Vital Signs Temp 98.9 F 01/22/22 11:28 Pulse 68 01/22/22 20:00 Resp 12 01/22/22 11:28 BP 105/55 01/22/22 11:28 Pulse Ox 97 01/22/22 11:28 Intake & Output 01/22/22 01/22/22 01/23/22 06:59 18:59 06:59 Other: Voiding Method Toilet Toilet Toilet # Voids 1 - Exam PHYSICAL EXAMINATION: Patient is lying in the bed comfortably, no acute distress, awake alert and oriented.. HEENT: Normocephalic. Neck is supple. Pupils reactive. Nostrils clear. Oral cavity is moist. Neck reveals no JVD, carotid bruits, or thyromegaly. CHEST EXAMINATION: Trachea is central. Symmetrical expansion. Lung robin clear to auscultation and percussion. CARDIAC: Normal S1, S2 with no gallops. No murmurs ABDOMEN: Soft. Epigastric tenderness. No guarding or rigidity. Bowel sounds normal. No organomegaly. No abdominal bruits. Extremities: reveal no edema. No clubbing or cyanosis Neurologically awake, alert, oriented x3 with well-coordinated movements. No focal deficits noted Skin: No rash or skin lesions. Psychiatric: Coperative. Nonsuicidal Musculoskeletal: No joint swelling or deformity. Normal range of motion. - Labs CBC & Chem 7: 01/24/22 06:14 01/23/22 06:35 Labs: Abnormal Lab Results - Last 24 Hours (Table) 01/22/22 01/22/22 01/22/22 Range/Units 00:52 04:25 06:28 WBC 15.58 H (4.50-10.00) X 10*3/uL Hct 39.5 L (39.6-50.0) % Immature Gran # 0.09 H (0.00-0.04) X 10*3/uL Neutrophils # 11.26 H (1.80-7.70) X 10*3/uL Sodium (135-145) mmol/L Carbon Dioxide (20.0-27.5) mmol/L BUN (9.0-27.0) mg/dL BUN/Creatinine Ratio (12.00-20.00) Ratio Glucose (70-110) mg/dL POC Glucose (mg/dL) 311 H 313 H (75-99) mg/dL Hemoglobin A1c (0.0-6.0) % Calcium (8.7-10.3) mg/dL AST (14-35) U/L ALT (10-49) U/L Total Protein (6.2-8.2) g/dL Albumin (3.8-4.9) g/dL Triglycerides (0.00-149.00) mg/dL DANNY Screen (NEGATIVE) 01/22/22 01/22/22 01/22/22 Range/Units 06:28 06:28 06:28 WBC (4.50-10.00) X 10*3/uL Hct (39.6-50.0) % Immature Gran # (0.00-0.04) X 10*3/uL Neutrophils # (1.80-7.70) X 10*3/uL Sodium 128 L (135-145) mmol/L Carbon Dioxide 17.1 L (20.0-27.5) mmol/L BUN 7.8 L (9.0-27.0) mg/dL BUN/Creatinine Ratio 11.14 L (12.00-20.00) Ratio Glucose 287 H (70-110) mg/dL POC Glucose (mg/dL) (75-99) mg/dL Hemoglobin A1c (0.0-6.0) % Calcium 8.4 L (8.7-10.3) mg/dL AST <5 L (14-35) U/L ALT <5 L (10-49) U/L Total Protein 5.4 L (6.2-8.2) g/dL Albumin 3.4 L (3.8-4.9) g/dL Triglycerides 3482.00 H (0.00-149.00) mg/dL DANNY Screen POSITIVE A (NEGATIVE) 01/22/22 01/22/22 01/22/22 Range/Units 06:28 09:36 13:10 WBC (4.50-10.00) X 10*3/uL Hct (39.6-50.0) % Immature Gran # (0.00-0.04) X 10*3/uL Neutrophils # (1.80-7.70) X 10*3/uL Sodium (135-145) mmol/L Carbon Dioxide (20.0-27.5) mmol/L BUN (9.0-27.0) mg/dL BUN/Creatinine Ratio (12.00-20.00) Ratio Glucose (70-110) mg/dL POC Glucose (mg/dL) 283 H 300 H (75-99) mg/dL Hemoglobin A1c 17.9 H (0.0-6.0) % Calcium (8.7-10.3) mg/dL AST (14-35) U/L ALT (10-49) U/L Total Protein (6.2-8.2) g/dL Albumin (3.8-4.9) g/dL Triglycerides (0.00-149.00) mg/dL DANNY Screen (NEGATIVE) 01/22/22 01/22/22 Range/Units 16:59 20:25 WBC (4.50-10.00) X 10*3/uL Hct (39.6-50.0) % Immature Gran # (0.00-0.04) X 10*3/uL Neutrophils # (1.80-7.70) X 10*3/uL Sodium (135-145) mmol/L Carbon Dioxide (20.0-27.5) mmol/L BUN (9.0-27.0) mg/dL BUN/Creatinine Ratio (12.00-20.00) Ratio Glucose (70-110) mg/dL POC Glucose (mg/dL) 262 H 206 H (75-99) mg/dL Hemoglobin A1c (0.0-6.0) % Calcium (8.7-10.3) mg/dL AST (14-35) U/L ALT (10-49) U/L Total Protein (6.2-8.2) g/dL Albumin (3.8-4.9) g/dL Triglycerides (0.00-149.00) mg/dL DANNY Screen (NEGATIVE) Assessment and Plan Assessment: Hyperglycemia with uncontrolled diabetes type 1 due to noncompliance with insulin. Acute pancreatitis Hypertriglyceridemia possible gastritis Hypovolemic hyponatremia and pseudohyponatremia Currently everyday smoker History of marijuana use History of admission with DKA previously DVT prophylaxis. Plan: Patient be current on IV hydration nothing by mouth until pain gets better. Patient will be current on morphine IV as needed for pain and continue with insulin sliding scale and patient will be started on insulin regimen. Follow-up closely. A1c level was ordered. Smoking cessation has been counseled extensively. Gastroenterology service was consulted for recurrent pancreatitis. Patient will be started on fenofibrate and statins Time with Patient: Greater than 30
--- NOTE | 2022-01-24 10:35 | P.PN ---
Subjective Progress Note Date: 01/23/22 Patient is a 31-year-old male with a known history of diabetes type 1, history of DKA, pancreatitis and currently everyday smoker and history of marijuana use presents to ER with complaints of abdominal pain mainly in the epigastric region and sometimes radiating to the back. Patient is noncompliant with insulin regimen. Patient has not taken his medications for the past 2 months. Patient has been feeling very weak. Has been having polyuria and polydipsia.. Patient was recently admitted to hospital in October for DKA. Patient has been having nausea and episodes of vomiting. No diarrhea. No complaints of chest pain or shortness of breath. No dysuria or hematuria. Laboratory test showed WBC 13.9 hemoglobin 15.4 and platelets 302 Sodium 135 potassium 4.8 chloride 95 bicarb is 18 BUN 13 and creatinine 0.64 blood sugar is 6.0 on admission [place] is not elevated lipase level unable to perform due to grossly lipemic specimen. Urinalysis is negative for infection. 4+ glucose and 2+ ketones. 01/22/2022. Patient is currently lying in the bed. Awake alert and oriented x3. Still complains of abdominal pain mainly in the epigastric region. Still nauseated. No episodes of vomiting. No fever no chills. Lipase level came down to 46 today. Other laboratory results showed triglyceride level 3482 and DANNY positive. Sodium 128 potassium 4.4 chloride 99 bicarb is 17; BUN 7.8 and creatinine 0.7 and blood sugar is 287 WBC 14.5 hemoglobin 14.4 and platelets 288 01/23/2022. Patient states that his abdominal pain is better today. No complaints of chest pain or shortness of breath. No nausea and no episodes of vomiting. CT of the abdomen pelvis showed fairly severe inflammatory changes right upper and mid abdomen favors And acute changes. Acute inflammation of the gastric antrum and antrum and antritis and proximal duodenum/duodenitis would be in the differential but failed reactive findings. No areas of normal enhancement or well-formed fluid collection. No free air. Laboratory showed WBC 14.2 hemoglobin 12.6 and platelets 247 Sodium 131 potassium 4.8 chloride and bicarb is 16.9 BUN 5.5 and creatinine 0.7 and blood sugar is 2.40 A1c 17.9. . Patient would like to try liquid diet. Current medications reviewed. Objective - Vital Signs Vital signs: Vital Signs Temp 98.3 F 01/23/22 21:00 Pulse 72 01/23/22 21:00 Resp 18 01/23/22 21:00 BP 115/64 01/23/22 21:00 Pulse Ox 95 01/23/22 21:00 Intake & Output 01/23/22 01/23/22 01/24/22 06:59 18:59 06:59 Intake Total 0 1800 Balance 0 1800 Weight 90.718 kg Intake: Intake, IV Titration 1800 Amount Sodium Chloride 0.9% 1, 1800 000 ml @ 150 mls/hr IV . Q6H40M [facility] Rx#:[id number] Oral 0 Other: Voiding Method Toilet Toilet # Voids 2 - Exam PHYSICAL EXAMINATION: Patient is lying in the bed comfortably, no acute distress, awake alert and oriented.. HEENT: Normocephalic. Neck is supple. Pupils reactive. Nostrils clear. Oral cavity is moist. Neck reveals no JVD, carotid bruits, or thyromegaly. CHEST EXAMINATION: Trachea is central. Symmetrical expansion. Lung robin clear to auscultation and percussion. CARDIAC: Normal S1, S2 with no gallops. No murmurs ABDOMEN: Soft. Epigastric tenderness. No guarding or rigidity. Bowel sounds normal. No organomegaly. No abdominal bruits. Extremities: reveal no edema. No clubbing or cyanosis Neurologically awake, alert, oriented x3 with well-coordinated movements. No focal deficits noted Skin: No rash or skin lesions. Psychiatric: Coperative. Nonsuicidal Musculoskeletal: No joint swelling or deformity. Normal range of motion. - Labs CBC & Chem 7: 01/24/22 06:14 01/23/22 06:35 Labs: Abnormal Lab Results - Last 24 Hours (Table) 01/23/22 01/23/22 01/23/22 Range/Units 06:35 06:35 06:58 WBC 14.26 H (4.50-10.00) X 10*3/uL Hgb 12.6 L (13.0-17.0) g/dL Hct 37.9 L (39.6-50.0) % Immature Gran # 0.07 H (0.00-0.04) X 10*3/uL Neutrophils # 10.60 H (1.80-7.70) X 10*3/uL Sodium 131 L (135-145) mmol/L Carbon Dioxide 16.9 L (20.0-27.5) mmol/L BUN 5.5 L (9.0-27.0) mg/dL BUN/Creatinine Ratio 7.86 L (12.00-20.00) Ratio Glucose 244 H (70-110) mg/dL POC Glucose (mg/dL) 248 H (75-99) mg/dL Calcium 8.4 L (8.7-10.3) mg/dL AST 12 L (14-35) U/L Total Protein 5.9 L (6.2-8.2) g/dL Albumin 3.2 L (3.8-4.9) g/dL Albumin/Globulin Ratio 1.19 L (1.60-3.17) g/dL 01/23/22 01/23/22 01/23/22 Range/Units 11:20 17:10 20:04 WBC (4.50-10.00) X 10*3/uL Hgb (13.0-17.0) g/dL Hct (39.6-50.0) % Immature Gran # (0.00-0.04) X 10*3/uL Neutrophils # (1.80-7.70) X 10*3/uL Sodium (135-145) mmol/L Carbon Dioxide (20.0-27.5) mmol/L BUN (9.0-27.0) mg/dL BUN/Creatinine Ratio (12.00-20.00) Ratio Glucose (70-110) mg/dL POC Glucose (mg/dL) 229 H 189 H 241 H (75-99) mg/dL Calcium (8.7-10.3) mg/dL AST (14-35) U/L Total Protein (6.2-8.2) g/dL Albumin (3.8-4.9) g/dL Albumin/Globulin Ratio (1.60-3.17) g/dL Assessment and Plan Assessment: Hyperglycemia with uncontrolled diabetes type 1 due to noncompliance with insulin. Acute pancreatitis. CT showed inflammatory changes. No fluid collection. Hypertriglyceridemia and DANNY positive. IgG4 level is pending. possible gastritis/duodenitis. Likely reactive Leukocytosis is improving. Hypovolemic hyponatremia and pseudohyponatremia Currently everyday smoker History of marijuana use History of admission with DKA previously DVT prophylaxis. Plan: Patient be current on IV hydration nothing by mouth until pain gets better. Patient will be continued on pain management with Dilaudid. Would like to try liquid diet. Continue with Levemir and and preprandial insulin. Continue with sliding scale. Continue with PPI. Follow-up closely. A1c level was ordered. Smoking cessation has been counseled extensively. Gastroenterology service was consulted for recurrent pancreatitis. Patient will be started on fenofibrate and statins Time with Patient: Greater than 30
[2022-01-24 10:37] LABS: ALT 20 U/L (10-49); AST 14 U/L (14-35); African American GFR (CKD) 153.1 (60.0-200.0); Alkaline Phosphatase 76 U/L (41-126); BUN/Creat Ratio 7.83 Ratio (12.00-20.00); Blood Urea Nitrogen 4.7 mg/dL (9.0-27.0); Calcium 8.3 mg/dL (8.7-10.3); Carbon Dioxide 20.9 mmol/L (20.0-27.5); Chloride 102 mmol/L (96-109); Globulin 2.5 g/dL (1.6-3.3); Glucose 207 mg/dL (70-110); Non-African American GFR(CKD) 132.1 (60.0-200.0); Potassium 4.1 mmol/L (3.5-5.5); Sodium 134 mmol/L (135-145); Total Bilirubin <0.15 mg/dL (0.30-1.20); Total Protein 5.5 g/dL (6.2-8.2)
[2022-01-24 12:42] LABS: Glucose,Whole Blood 156 mg/dL (75-99)
--- NOTE | 2022-01-24 14:21 | P.PN ---
Subjective Progress Note Date: 01/24/22 REASON FOR CONSULTATION: Pancreatitis HISTORY OF PRESENT ILLNESS: The patient is a 31-year-old male recently diagnosed with diabetes type 1 who is noncompliant with medical care presented with epigastric abdominal pain. He does not take hypoglycemics or insulin at home. Patient is not on any medication. Patient reports eating primarily a high fat foods. Diagnostic studies demonstrated inflammation of duodenum questionable pancreatitis as a result, general surgery consult. Patient reports since admission abdominal pain is resolved. Patient tolerated clear liquid diet. He is eager to go home today. He is eager for additional food. REVIEW OF ORGAN SYSTEMS: No fevers or chills. No nausea vomiting. No chest pain. PHYSICAL EXAM: VITALS: Reviewed CONSTITUTIONAL: Well developed and in no acute distress. EYES: Conjuctivae without sclera icterus. Extraocular movements grossly intact. HEAD, EARS, NOSE, THROAT: Moist buccal mucosa. Head is atraumatic, normocephalic. Hears conversational speech. No nasal drainage. RESPIRATORY: Non-labored respirations and equal bilateral excursions. No gross wheezes. CARDIOVASCULAR: Palpable 2+ radial pulses. ABDOMEN: No peritonitis. Nontender. MUSCULOSKELETAL: No clubbing, cyanosis or edema. SKIN: Warm and well perfused with good skin turgor. NEUROLOGIC: Cranial nerves II through XII grossly intact. No focal or lateralizing signs. PSYCH: Alert and oriented to person, place and time. CLINCAL LABS: Reviewed. WBC elevated on admission 13.9 elevated to 14.26 now down to 9.5, normal. Sodium improved from 125-134. Blood sugar glucose improved from over 300s to 180s. IMAGING: Independently reviewed ultrasound of the gallbladder without gallstones. This is my independent interpretation. ASSESSMENT: 1. Abdominal pain, epigastric 2. Abnormal CT scan with peripancreatitis 3. Medical non-compliance 4. Diabetes type I, uncontrolled 5. Hypokalemia PLAN: 1. His diet has been advanced. Consistent carbohydrate diet initiated. 2. Alternatives of upper endoscopy with biopsies described. Patient prefers to go home. 3. May have outpatient endoscopy. 4. Stable for discharge when medically stable. Objective - Vital Signs Vital signs: Vital Signs Temp 97.9 F 01/24/22 05:12 Pulse 65 01/24/22 11:22 Resp 18 01/24/22 11:22 BP 117/79 01/24/22 05:12 Pulse Ox 96 01/24/22 05:12 Intake & Output 01/23/22 01/24/22 01/24/22 18:59 06:59 18:59 Intake Total 1800 2340 Balance 1800 2340 Weight 90.718 kg Intake: Intake, IV Titration 1800 1800 Amount Sodium Chloride 0.9% 1, 1800 1800 000 ml @ 150 mls/hr IV . Q6H40M [facility] Rx#:[id number] Oral 540 Other: Voiding Method Toilet Toilet # Voids 3 - Labs CBC & Chem 7: 01/24/22 06:14 01/24/22 06:14 Labs: Abnormal Lab Results - Last 24 Hours (Table) 01/23/22 01/23/22 01/24/22 Range/Units 17:10 20:04 06:14 Hgb 12.4 L (13.0-17.0) g/dL Hct 38.7 L (39.6-50.0) % Immature Gran # 0.05 H (0.00-0.04) X 10*3/uL Sodium (135-145) mmol/L BUN (9.0-27.0) mg/dL BUN/Creatinine Ratio (12.00-20.00) Ratio Glucose (70-110) mg/dL POC Glucose (mg/dL) 189 H 241 H (75-99) mg/dL Calcium (8.7-10.3) mg/dL Total Bilirubin (0.30-1.20) mg/dL Total Protein (6.2-8.2) g/dL Albumin (3.8-4.9) g/dL Albumin/Globulin Ratio (1.60-3.17) g/dL 01/24/22 01/24/22 01/24/22 Range/Units 06:14 07:16 12:40 Hgb (13.0-17.0) g/dL Hct (39.6-50.0) % Immature Gran # (0.00-0.04) X 10*3/uL Sodium 134 L (135-145) mmol/L BUN 4.7 L (9.0-27.0) mg/dL BUN/Creatinine Ratio 7.83 L (12.00-20.00) Ratio Glucose 207 H (70-110) mg/dL POC Glucose (mg/dL) 201 H 156 H (75-99) mg/dL Calcium 8.3 L (8.7-10.3) mg/dL Total Bilirubin <0.15 L (0.30-1.20) mg/dL Total Protein 5.5 L (6.2-8.2) g/dL Albumin 3.0 L (3.8-4.9) g/dL Albumin/Globulin Ratio 1.20 L (1.60-3.17) g/dL
[2022-01-24 14:44] VITALS: BP 123/73; PULSE 75; TEMP 97.6
[2022-01-24] MEDS ORDERED: PANTOPRAZOLE 40 MG TABLET PO SCH (21:00)
[2022-01-27 13:45] LABS: IgG Subclass 1 354.7 mg/dL (382.40-928.60); IgG Subclass 3 56.6 mg/dL (21.82-176.00); IgG Subclass 4 78.2 mg/dL (3.92-86.40)
--- NOTE | 2022-02-03 15:45 | P.DS ---
Providers Date of admission: 01/21/22 14:33 Expected date of discharge: 01/24/22 Attending physician: Yaneth Nation Consults: 01/21/22 14:19 Consult Physician Routine Consulting Provider: Xochitl Gates Consult Reason/Comments: pancreatitis Do you want consulting provider notified?: Yes 01/22/22 15:02 Consult Physician Routine Consulting Provider: Iqra Mccall Consult Reason/Comments: abdominal pain, pancreatitis, duodenum inflammation Do you want consulting provider notified?: Yes Primary care physician: Zheng Saldivarhven Hospital Course: Discharge diagnosis Hyperglycemia with uncontrolled diabetes type 1 due to noncompliance with insulin. Acute pancreatitis. CT showed inflammatory changes. No fluid collection. Hypertriglyceridemia and DANNY positive. IgG4 level is pending. possible gastritis/duodenitis. Likely reactive Leukocytosis is improving. Hypovolemic hyponatremia and pseudohyponatremia Currently everyday smoker History of marijuana use History of admission with DKA previously DVT prophylaxis. Hospital course Patient is a 31-year-old male with a known history of diabetes type 1, history of DKA, pancreatitis and currently everyday smoker and history of marijuana use presents to ER with complaints of abdominal pain mainly in the epigastric region and sometimes radiating to the back. Patient is noncompliant with insulin regimen. Patient has not taken his medications for the past 2 months. Patient has been feeling very weak. Has been having polyuria and polydipsia.. Patient was recently admitted to hospital in October for DKA. Patient has been having nausea and episodes of vomiting. No diarrhea. No complaints of chest pain or shortness of breath. No dysuria or hematuria. Laboratory test showed WBC 13.9 hemoglobin 15.4 and platelets 302 Sodium 135 potassium 4.8 chloride 95 bicarb is 18 BUN 13 and creatinine 0.64 blood sugar is 6.0 on admission [place] is not elevated lipase level unable to perform due to grossly lipemic specimen. Urinalysis is negative for infection. 4+ glucose and 2+ ketones. 01/22/2022. Patient is currently lying in the bed. Awake alert and oriented x3. Still complains of abdominal pain mainly in the epigastric region. Still nauseated. No episodes of vomiting. No fever no chills. Lipase level came down to 46 today. Other laboratory results showed triglyceride level 3482 and DANNY positive. Sodium 128 potassium 4.4 chloride 99 bicarb is 17; BUN 7.8 and creatinine 0.7 and blood sugar is 287 WBC 14.5 hemoglobin 14.4 and platelets 288 01/23/2022. Patient states that his abdominal pain is better today. No complaints of chest pain or shortness of breath. No nausea and no episodes of vomiting. CT of the abdomen pelvis showed fairly severe inflammatory changes right upper and mid abdomen favors And acute changes. Acute inflammation of the gastric antrum and antrum and antritis and proximal duodenum/duodenitis would be in the differential but kelly led reactive findings. No areas of normal enhancement or well-formed fluid collection. No free air. Laboratory showed WBC 14.2 hemoglobin 12.6 and platelets 247 Sodium 131 potassium 4.8 chloride and bicarb is 16.9 BUN 5.5 and creatinine 0.7 and blood sugar is 2.40 A1c 17.9. . Patient would like to try liquid diet. 01/24/22 Patient is currently resting in bed. Awake alert and oriented. Alert and oriented x3. Able to tolerate able to tolerate oral diet and advance to regular diet. No complaints of chest pain or shortness of breath. No fever no chills. No cough or sputum production. Arrives here A1c level 17.9. Patient was started on insulin regimen. Recommends to follow-up as an outpatient with primary care physician and gastroenterology as an outpatient due to DANNY positive and follow-up IgG4 levels. No other acute issues. Patient would like to be discharged home. Cleared from surgery standpoint. Laboratory test showed WBC 9.1 hemoglobin 12.4 and platelets 268 sodium 134 pot assium 4.1 chloride 102 bicarb is 20.9 BUN 4.7 and creatinine 0.6 and blood sugar is 207 calcium 8.3 albumin 3.0 Diabetic education provided medication provided. PHYSICAL EXAMINATION: Patient is lying in the bed comfortably, no acute distress, awake alert and oriented.. HEENT: Normocephalic. Neck is supple. Pupils reactive. Nostrils clear. Oral cavity is moist. Neck reveals no JVD, carotid bruits, or thyromegaly. CHEST EXAMINATION: Trachea is central. Symmetrical expansion. Lung robin clear to auscultation and percussion. CARDIAC: Normal S1, S2 with no gallops. No murmurs ABDOMEN: Soft. Epigastric tenderness. No guarding or rigidity. Bowel sounds normal. No organomegaly. No abdominal bruits. Extremities: reveal no edema. No clubbing or cyanosis Neurologically awake, alert, oriented x3 with well-coordinated movements. No focal deficits noted Skin: No rash or skin lesions. Psychiatric: Coperative. Nonsuicidal Musculoskeletal: No joint swelling or deformity. Normal range of motion. - Vital Signs Vital signs: Vital Signs Temp 97.9 F 01/24/22 05:12 Pulse 65 01/24/22 11:22 Resp 18 01/24/22 11:22 BP 117/79 01/24/22 05:12 Pulse Ox 96 01/24/22 05:12 Intake & Output 01/23/22 01/24/22 01/24/22 18:59 06:59 18:59 Intake Total 1800 2340 Balance 1800 2340 Weight 90.718 kg Intake: Intake, IV Titration 1800 1800 Amount Sodium Chloride 0.9% 1, 1800 1800 000 ml @ 150 mls/hr IV . Q6H40M [facility] Rx#:[id number] Oral 540 Other: Voiding Method Toilet Toilet # Voids 3 Time taken greater than 35 minutes in patient care out of which more than 50% was spent on counseling and coordination of care. Patient Condition at Discharge: Stable Plan - Discharge Summary Discharge Rx Participant: No New Discharge Prescriptions: New Fenofibrate 160 mg PO DAILY #30 tab INSULIN ASPART (NovoLOG) [NovoLOG (formulary)] 4 unit SQ AC-TID #30 ml Insulin Detemir (Levemir) [Levemir] 12 unit SQ HS #30 ml Pantoprazole [Protonix] 40 mg PO DAILY #30 tab Discharge Medication List Fenofibrate 160 mg PO DAILY #30 tab 01/24/22 [Rx] INSULIN ASPART (NovoLOG) [NovoLOG (formulary)] 4 unit SQ AC-TID #30 ml 01/24/22 [Rx] Insulin Detemir (Levemir) [Levemir] 12 unit SQ HS #30 ml 01/24/22 [Rx] Pantoprazole [Protonix] 40 mg PO DAILY #30 tab 01/24/22 [Rx] Follow up Appointment(s)/Referral(s): Zheng Steen MD [Primary Care Provider] - 1-2 days Xochitl Gates MD [STAFF PHYSICIAN] - 1 Week Iqra Mccall MD [STAFF PHYSICIAN] - 3 Days Patient Instructions/Handouts: Fenofibrate (By mouth), Pantoprazole (By mouth), Insulin Aspart, Recombinant (By injection), Insulin Detemir (By injection) Discharge Disposition: HOME SELF-CARE
== END 2022-01-24 14:30 | disposition home or self-care (01) ==
LOC: EC 11:04 → 5NMEDONC 14:33 → INTOOBSV 14:33 → 5NMEDONC 15:59 → UNDODISIN 01-24 14:30
PROVIDERS: ADMIT Internal Medicine; ATTEND Internal Medicine
DX: E10.65 Type 1 diabetes mellitus with hyperglycemia (principal); Z91.14 Patient's other noncompliance with medication regimen; T38.3X6A Underdosing of insulin and oral hypoglycemic [antidiabetic] drugs, initial encounter; Z91.128 Patient's intentional underdosing of medication regimen for other reason; K85.90 Acute pancreatitis without necrosis or infection, unspecified; E78.1 Pure hyperglyceridemia; E87.1 Hypo-osmolality and hyponatremia; R76.8 Other specified abnormal immunological findings in serum; E86.1 Hypovolemia; E87.6 Hypokalemia; R25.2 Cramp and spasm; K86.1 Other chronic pancreatitis; R09.02 Hypoxemia; D72.828 Other elevated white blood cell count; E86.0 Dehydration; E66.9 Obesity, unspecified; Z68.30 Body mass index [BMI] 30.0-30.9, adult; F17.210 Nicotine dependence, cigarettes, uncomplicated; Z28.310 Unvaccinated for COVID-19; Z79.4 Long term (current) use of insulin; Z98.890 Other specified postprocedural states; Z79.899 Other long term (current) drug therapy; Z71.6 Tobacco abuse counseling; Z71.9 Counseling, unspecified; Z83.3 Family history of diabetes mellitus
CPT/HCPCS: 96376 ×3; 96361 ×5; 96372 ×4; 96375; 96374; 99284; 36415; 80053 ×4; 83690 ×2; 84478; 85025 ×4; 81003; 82787; 86038; 86039; 83036; 76700; 74177; G0378 ×4; J2405 ×2; J2270 ×2; C9113 ×3; J1170 ×2; Q9967; J1644 ×4

== ENCOUNTER 2024-03-24 17:40 | Emergency (ER) | payer OTHER ==
[2024-03-24 17:47] VITALS: RESP 18; TEMP 98
--- NOTE | 2024-03-24 18:12 | ED ---
Upper Extremity HPI - General Chief Complaint: Extremity Injury, Upper Stated Complaint: R hand injury Time Seen by Provider: 03/24/24 17:55 Source: patient, RN notes reviewed Mode of arrival: ambulatory Limitations: no limitations - History of Present Illness Initial Comments: This is a 33-year-old male presents emergency department chief complaint of r ight hand pain. States that approximately 3 days ago he had a anger outburst when he punched a dresser in his home with his right hand. 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 He denies paresthesias. States the pain will occasionally radiate proximally to his elbow. He denies pain of the right elbow or shoulder. No other acute complaints at this time. - Related Data Previous Rx's Medication Instructions Recorded Fenofibrate 160 mg PO DAILY #30 tab 01/24/22 INSULIN ASPART (NovoLOG) [NovoLOG 4 unit SQ AC-TID #30 ml 01/24/22 (formulary)] Insulin Detemir (Levemir) [Levemir] 12 unit SQ HS #30 ml 01/24/22 Pantoprazole [Protonix] 40 mg PO DAILY #30 tab 01/24/22 Ibuprofen [Motrin] 800 mg PO Q6HR #30 tab 03/24/24 Allergies Allergy/AdvReac Type Severity Reaction Status Date / Time No Known Allergies Allergy Verified 03/24/24 17:47 Review of Systems ROS Statement: Those systems with pertinent positive or pertinent negative responses have been documented in the HPI. ROS Other: All systems not noted in ROS Statement are negative. Past Medical History Past Medical History: Diabetes Mellitus Additional Past Medical History / Comment(s): IDDM type 1, DKA, pancreatitis, bilateral leg cramps. History of Any Multi-Drug Resistant Organisms: None Reported Past Surgical History: Orthopedic Surgery Additional Past Surgical History / Comment(s): R knee ACL surgery Past Anesthesia/Blood Transfusion Reactions: No Reported Reaction Past Psychological History: No Psychological Hx Reported Smoking Status: Current every day smoker Past Alcohol Use History: None Reported Past Drug Use History: Marijuana - Past Family History Mother Family Medical History: Diabetes Mellitus Father History Unknown: Yes General Exam Limitations: no limitations General appearance: alert, in no apparent distress Head exam: Present: atraumatic, normocephalic, normal inspection Eye exam: Present: normal appearance, PERRL, EOMI. Absent: scleral icterus, conjunctival injection, periorbital swelling ENT exam: Present: normal exam, mucous membranes moist Neck exam: Present: normal inspection. Absent: tenderness, meningismus, lymphadenopathy Respiratory exam: Present: normal lung sounds bilaterally. Absent: respiratory distress, wheezes, rales, rhonchi, stridor Cardiovascular Exam: Present: regular rate, normal rhythm, normal heart sounds. Absent: systolic murmur, diastolic murmur, rubs, gallop, clicks GI/Abdominal exam: Present: soft, normal bowel sounds. Absent: distended, tenderness, guarding, rebound, rigid Right Hand Wrist exam: Present: normal inspection, full ROM, tenderness (lateral). Absent: swelling, laceration, ecchymosis, deformity, erythema Neuro motor exam: Present: wrist extension intact, thumb opposition intact Vascular: Present: normal capillary refill, radial pulse (2+). Absent: vascular compromise Back exam: Present: normal inspection Neurological exam: Present: alert, oriented X3, CN II-XII intact Psychiatric exam: Present: normal affect, normal mood Skin exam: Present: warm, dry, intact, normal color. Absent: rash Course Vital Signs 03/24/24 17:46 Temperature 98 F Pulse Rate 68 Respiratory 18 Rate O2 Sat by Pulse 98 Oximetry Medical Decision Making - Medical Decision Making Was pt. sent in by a medical professional or institution (Dr. PA, RN SUPPLEMENTAL, urgent care, hospital, or [facility]...) When possible be specific @ -No Did you speak to anyone other than the patient for history (EMS, parent, family, police, friend...)? What history was obtained from this source @ -No Did you review nursing and triage notes (agree or disagree)? Why? @ -I reviewed and agree with nursing and triage notes Were old charts reviewed (outside hosp., previous admission, EMS record, old EKG, old radiological studies, urgent care reports/EKG's, [facility] records)? Report findings @ -No old charts were reviewed Differential Diagnosis (chest pain, altered mental status, abdominal pain women, abdominal pain men, vaginal bleeding, weakness, fever, dyspnea, syncope, headache, dizziness, GI bleed, back pain, seizure, CVA, palpatations, mental health, musculoskeletal)? @ -Differential Musculoskeletal Muscular strain, contusion, ligament sprain, fracture, arthritis, septic arthritis, bursitis, cellulitis, muscle spasm, nerve compression, DVT, arterial occlusion, herpes zoster, electrolyte abnormality, tumor.... This is not meant to be in all inclusive list EKG interpreted by me (3pts min.). @ -None X-rays interpreted by me (1pt min.). @ -xray of the right hand reveals no acute osseous abnormality. There is marked osteoarthrosis. CT interpreted by me (1pt min.). @ -None done U/S interpreted by me (1pt. min.). @ -None done What testing was considered but not performed or refused? (CT, X-rays, U/S, labs)? Why? @ -None What meds were considered but not given or refused? Why? @ -None Did you discuss the management of the patient with other professionals (professionals i.e. , PA, RN SUPPLEMENTAL, lab, RT, psych nurse, social science teacher, cleaning porter, teacher, ecological technical officer, case maker)? Give summary @ -No Was smoking cessation discussed for >3mins.? @ -No Was critical care preformed (if so, how long)? @ -No Were there social determinants of health that impacted care today? How? (Homelessness, low income, unemployed, alcoholism, drug addiction, transportation, low edu. Level, literacy, decrease access to med. care, long-term, rehab)? @ -No Was there de-escalation of care discussed even if they declined (Discuss DNR or withdrawal of care, Hospice)? DNR status @ -No What co-morbidities impacted this encounter? (DM, HTN, Smoking, COPD, CAD, Cancer, CVA, ARF, Chemo, Hep., AIDS, mental health diagnosis, sleep apnea, morbid obesity)? @ -None Was patient admitted / discharged? Hospital course, mention meds given and route, prescriptions, significant lab abnormalities, going to OR and other pertinent info. @ -Discharge. 33-year-old male with right hand pain. On examination there are no neurological or muskuloskeletal deficts. Patient's radial pulses 2+ and lamination no acute findings. X-ray unremarkable for acute process. Patient was placed in a Daniel wrap and a prescription for Motrin sent to take as needed for pain relief. Case discussed with Dr Lopez. Undiagnosed new problem with uncertain prognosis? @ -No Drug Therapy requiring intensive monitoring for toxicity (Heparin, Nitro, Insulin, Cardizem)? @ -No Were any procedures done? @ -No Diagnosis/symptom? @ -hand sprain Acute, or Chronic, or Acute on Chronic? @ -acute Uncomplicated (without systemic symptoms) or Complicated (systemic symptoms)? @ -uncompliocated Side effects of treatment? @ -No Exacerbation, Progression, or Severe Exacerbation? @ -No Poses a threat to life or bodily function? How? (Chest pain, [place], [place], pneumonia, PE, COPD, DKA, ARF, appy, cholecystitis, CVA, Diverticulitis, Homicidal, Suicidal, threat to staff... and all critical care pts) @ -No Disposition Clinical Impression: Sprain of right hand Disposition: HOME SELF-CARE Condition: Good Instructions (If sedation given, give patient instructions): Hand Sprain (ED) Additional Instructions: Return to the emergency department for any new or worsening symptoms. Take Motrin as needed for pain relief. Prescriptions: Ibuprofen [Motrin] 800 mg PO Q6HR #30 tab Is patient prescribed a controlled substance at d/c from ED?: No Referrals: Zheng Steen MD [Primary Care Provider] - 1-2 days Time of Disposition: 18:40
--- NOTE | 2024-03-24 18:23 | XR ---
EXAMINATION TYPE: XR hand complete RT DATE OF EXAM: 03/24/2024 6:10 PM CLINICAL INDICATION:Male, 33 years old with history of lateral pain, injury 3 days ago; [facility] COMPARISON: None TECHNIQUE: XR hand complete RT Frontal, lateral and oblique views were obtained. FINDINGS: Normal alignment of the visualized joints. No acute osseous pathology is identified. No e vidence of soft tissue swelling. No significant degeneration IMPRESSION: 1. No acute osseous pathology. 2. Multifocal osteoarthrosis throughout the joints of the hand.
[2024-03-24 19:09] VITALS: BP 124/59; PULSE 67
== END 2024-03-24 19:09 | disposition home or self-care (01) ==
LOC: EC 17:40
DX: S63.91XA Sprain of unspecified part of right wrist and hand, initial encounter (principal); F17.200 Nicotine dependence, unspecified, uncomplicated; W22.09XA Striking against other stationary object, initial encounter; Y92.019 Unspecified place in single-family (private) house as the place of occurrence of the external cause
CPT/HCPCS: 99283

== ENCOUNTER 2024-12-21 19:22 | Emergency (ER) | payer OTHER ==
[2024-12-21 19:27] VITALS: RESP 18; TEMP 98.2
[2024-12-21] MEDS: KETOROLAC 15 MG/ML 1 ML VIAL IM STA (20:44)
[2024-12-21] MEDS: AMOXIC-POT CLAV 875-125MG 1 EACH TAB PO STA (20:46)
[2024-12-21 20:52] VITALS: BP 171/110; PULSE 73
--- NOTE | 2024-12-21 20:54 | ED ---
ENT HPI - General Chief complaint: Dental/Oral Stated complaint: L side facial/tooth pain Time Seen by Provider: 12/21/24 20:51 Source: patient, RN notes reviewed Mode of arrival: ambulatory Limitations: no limitations - History of Present Illness Initial comments: 34-year-old male presenting for left dental pain x 3 days. States he believes he has a cracked tooth on the left lower side of his mouth. States in the past the pain has been intermittent however has been constant and worsening over the past 3 days with associated left-sided facial swelling. Patient is able to tolerate orals well. Denies difficulty breathing or swallowing. - Related Data Previous Rx's Medication Instructions Recorded Fenofibrate 160 mg PO DAILY #30 tab 01/24/22 INSULIN ASPART (NovoLOG) [NovoLOG 4 unit SQ AC-TID #30 ml 01/24/22 (formulary)] Insulin Detemir (Levemir) [Levemir] 12 unit SQ HS #30 ml 01/24/22 Pantoprazole [Protonix] 40 mg PO DAILY #30 tab 01/24/22 Ibuprofen [Motrin] 800 mg PO Q6HR #30 tab 03/24/24 Acetaminophen-Codeine 300-30mg 1 tab PO Q4H PRN #20 tablet 12/21/24 [Tylenol #3] Amoxic-Pot Clav 875-125Mg 1 tab PO Q12HR #20 tab 12/21/24 [Augmentin 875-125] Ibuprofen [Motrin] 800 mg PO Q6HR #30 tab 12/21/24 Allergies Allergy/AdvReac Type Severity Reaction Status Date / Time No Known Allergies Allergy Verified 12/21/24 19:27 Review of Systems ROS Statement: Those systems with pertinent positive or pertinent negative responses have been documented in the HPI. ROS Other: All systems not noted in ROS Statement are negative. Past Medical History Past Medical History: Diabetes Mellitus, Hypertension Additional Past Medical History / Comment(s): IDDM type 1, DKA, pancreatitis, bilateral leg cramps. History of Any Multi-Drug Resistant Organisms: None Reported Past Surgical History: Orthopedic Surgery Additional Past Surgical History / Comment(s): R knee ACL surgery Past Anesthesia/Blood Transfusion Reactions: No Reported Reaction Past Psychological History: No Psychological Hx Reported Smoking Status: Current every day smoker Past Alcohol Use History: Occasional Past Drug Use History: Marijuana - Past Family History Mother Family Medical History: Diabetes Mellitus Father History Unknown: Yes General Exam Limitations: no limitations General appearance: alert, in no apparent distress Head exam: Present: atraumatic, normocephalic, normal inspection Eye exam: Present: normal appearance, PERRL, EOMI. Absent: scleral icterus, conjunctival injection, periorbital swelling ENT exam: Present: mucous membranes moist. Absent: normal exam (Diffuse dental caries throughout oral cavity. Erythema and tenderness to left lower molar, no fluctuant masses or abscesses) Neck exam: Present: normal inspection. Absent: tenderness, meningismus, lymphadenopathy Cardiovascular Exam: Present: regular rate, normal rhythm, normal heart sounds. Absent: systolic murmur, diastolic murmur, rubs, gallop, clicks GI/Abdominal exam: Present: soft, normal bowel sounds. Absent: distended, tenderness, guarding, rebound, rigid Neurological exam: Present: alert, oriented X3 Psychiatric exam: Present: normal affect, normal mood Skin exam: Present: warm, dry, intact, normal color. Absent: rash Course Vital Signs 12/21/24 12/21/24 19:24 20:50 Temperature 98.2 F Pulse Rate 56 L 73 Respiratory 18 18 Rate Blood Pressure 195/125 171/110 O2 Sat by Pulse 97 99 Oximetry Medical Decision Making - Medical Decision Making Was pt. sent in by a medical professional or institution (BARBARA Becker, PIPE ORGAN MECHANIC, urgent care, hospital, or [facility]...) When possible be specific @ -No Did you speak to anyone other than the patient for history (EMS, parent, family, police, friend...)? What history was obtained from this source @ -No Did you review nursing and triage notes (agree or disagree)? Why? @ -I reviewed and agree with nursing and triage notes Were old charts reviewed (outside hosp., previous admission, EMS record, old EKG, old radiological studies, urgent care reports/EKG's, [facility] records)? Report findings @ -No old charts were reviewed Differential Diagnosis (chest pain, altered mental status, abdominal pain women, abdominal pain men, vaginal bleeding, weakness, fever, dyspnea, syncope, headache, dizziness, GI bleed, back pain, seizure, CVA, palpatations, mental health, musculoskeletal)? @ -Dental abscess, gingivitis, Tommy's angina, fractured tooth EKG interpreted by me (3pts min.). @ -None X-rays interpreted by me (1pt min.). @ -None done CT interpreted by me (1pt min.). @ -None done U/S interpreted by me (1pt. min.). @ -None done What testing was considered but not performed or refused? (CT, X-rays, U/S, labs)? Why? @ -None What meds were considered but not given or refused? Why? @ -None Did you discuss the management of the patient with other professionals (professionals i.e. Dr., PA, PIPE ORGAN MECHANIC, lab, RT, psych nurse, renal social worker, early childhood education coordinator, teacher, special service officer, case packer and sealer)? Give summary @ -No Was smoking cessation discussed for >3mins.? @ -No Was critical care preformed (if so, how long)? @ -No Were there social determinants of health that impacted care today? How? (Homelessness, low income, unemployed, alcoholism, drug addiction, transportation, low edu. Level, literacy, decrease access to med. care, intermediate, rehab)? @ -No Was there de-escalation of care discussed even if they declined (Discuss DNR or withdrawal of care, Hospice)? DNR status @ -No What co-morbidities impacted this encounter? (DM, HTN, Smoking, COPD, CAD, Cancer, CVA, ARF, Chemo, Hep., AIDS, mental health diagnosis, sleep apnea, morbid obesity)? @ -None Was patient admitted / discharged? Hospital course, mention meds given and route, prescriptions, significant lab abnormalities, going to OR and other pertinent info. @ -Discharge. 34-year-old male presenting with dental pain x 3 days. Patient is afebrile, no red flag symptoms. No lip or tongue swelling or difficulty breathing/swallowing. Patient was provided with Toradol for pain/swelling. Discussed diagnosis of dental infection. Will provide outpatient prescription for Augmentin, ibuprofen, and Tylenol threes. Appropriate return precautions and supportive care discussed. Advised close follow-up with dentist. Patient is agreeable to plan. Case was discussed with my ED attending Dr. Gilmore. Undiagnosed new problem with uncertain prognosis? @ -No Drug Therapy requiring intensive monitoring for toxicity (Heparin, Nitro, Insulin, Cardizem)? @ -No Were any procedures done? @ -No Diagnosis/symptom? @ -Dental infection Acute, or Chronic, or Acute on Chronic? @ -Acute Uncomplicated (without systemic symptoms) or Complicated (systemic symptoms)? @ -Uncomplicated Side effects of treatment? @ -No Exacerbation, Progression, or Severe Exacerbation? @ -No Poses a threat to life or bodily function? How? (Chest pain, [place], [place], pneumonia, PE, COPD, DKA, ARF, appy, cholecystitis, CVA, Diverticulitis, Homicidal, Suicidal, threat to staff... and all critical care pts) @ -No Disposition Clinical Impression: Dental infection Disposition: HOME SELF-CARE Condition: Stable Instructions (If sedation given, give patient instructions): Toothache (ED) Additional Instructions: Take Augmentin as prescribed. Alternate ibuprofen 800s and Tylenol threes as discussed. Apply cold compresses to affected area. Please return to the Emergency Department if symptoms worsen or any other concerns. Prescriptions: Amoxic-Pot Clav 875-125Mg [Augmentin 875-125] 1 tab PO Q12HR #20 tab Ibuprofen [Motrin] 800 mg PO Q6HR #30 tab Acetaminophen-Codeine 300-30mg [Tylenol #3] 1 tab PO Q4H PRN #20 tablet PRN Reason: pain Is patient prescribed a controlled substance at d/c from ED?: Yes When asked, does pt state using other controlled substances?: No If prescribed controlled substance>3 days was MAPS reviewed?: Prescribed <3 Days If opioid is for acute pain is fill amount 7 days or less?: Yes If Rx opioid, was Start Talking consent form obtained?: No Referrals: Zheng Steen MD [Primary Care Provider] - 1-2 days Time of Disposition: 20:54
[2024-12-21] MEDS: ACET/COD 300 MG/30 MG STARTER PACK 6 TAB BTL PO STA (21:01)
== END 2024-12-21 21:12 | disposition home or self-care (01) ==
LOC: EC 19:22
DX: K04.7 Periapical abscess without sinus (principal); F17.200 Nicotine dependence, unspecified, uncomplicated
CPT/HCPCS: 99283; 96372; J1885